=== PATIENT | female | born 1975 | race Caucasian/White ===

== ENCOUNTER 2018-01-10 13:48 | Emergency (ER) | payer OTHER ==
--- NOTE | 2018-01-10 14:48 | ER Document Report ---
ED Extremity Problem, Lower - General Chief Complaint: Foot Pain Stated Complaint: TOE PAIN Time Seen by Provider: 01/10/18 14:48 Mode of Arrival: Ambulatory Information source: Patient Notes: 42-year-old female presented ED for complaint of pain to the left second and third toe for about 3 weeks. She states she has not been to her primary doctor or anyone for this infection because she does not have insurance. Patient is alert and oriented respirations regular and unlabored speaking in full sentences walk with a even steady gait. She does complain of pain with ambulation. TRAVEL OUTSIDE OF THE [place] IN LAST 30 DAYS: No - HPI Location: 2nd Toe, 3rd Toe - Slight redness to the second and third toe with athlete's foot to all the toes and foot Occurred: Other - 3 weeks Onset/Duration: Gradual, Worse Quality of pain: Sharp, Throbbing Severity: Moderate Pain Level: 2 Context: Other - Athlete's foot with some cellulitis due to scratching and itching the foot Recent injury: No Associated symptoms: Painful ambulation Exacerbated by: Hanging down, Movement, Walking Relieved by: Nothing - Related Data Allergies/Adverse Reactions: Sulfa (Sulfonamide Antibiotics) Allergy (Unknown, Verified 01/10/18 13:48) Past Medical History - General Information source: Patient - Social History Smoking Status: Never Smoker Frequency of alcohol use: Occasional Drug Abuse: None Occupation: [employer] Lives with: Family Family History: Reviewed & Not Pertinent Patient has suicidal ideation: No Patient has homicidal ideation: No - Past Medical History Cardiac Medical History: Reports: Hx Hypertension Pulmonary Medical History: Reports: None EENT Medical History: Reports: None Neurological Medical History: Reports: None Endocrine Medical History: Reports: Hx Graves' Disease, Other Renal/ Medical History: Reports: None Malignancy Medical History: Reports: None GI Medical History: Reports: None Musculoskeltal Medical History: Reports Hx Arthritis - RA Skin Medical History: Reports None Psychiatric Medical History: Reports: None Traumatic Medical History: Reports: None Infectious Medical History: Reports: None Past Surgical History: Reports: Hx Adenoidectomy, Hx Cholecystectomy, Hx Hysterectomy, Hx Tonsillectomy - Immunizations Immunizations up to date: Yes Hx Diphtheria, Pertussis, Tetanus Vaccination: Yes - 11/2009 Review of Systems - Review of Systems Skin: Other - Athlete's foot to the left foot with cellulitis to the second and third toe distal toe on both. Patient has been scratching her athlete's foot and states it has been slowly getting more more sore when walking Physical Exam - Vital signs Vitals: Temp Pulse Resp BP Pulse Ox 98.5 F 80 16 129/75 H 95 01/10/18 13:56 01/10/18 13:56 01/10/18 13:56 01/10/18 13:56 01/10/18 13:56 - Extremities Foot: Tender, No evidence of FB, Unable to bear weight, Other - Erythema and mild swelling to the distal part of the second and third toe on the left foot due to cellulitis after repeated scratching of her athlete's foot - Skin Location of irregularity: Extremities - Left second and third toe, Other - Athlete's foot to the left foot and between the toes Character of irregularity: Erythematous Irregularity with: Swelling, Tenderness Course - Re-evaluation Re-evalutation: 01/10/18 20:33 Patient encouraged to keep the foot clean and dry soak the foot and some Epson salt, use Bactroban to the end of the toes and use the antibiotic as prescribed. Patient encouraged to follow-up with a service unit operator oil well. Patient is on RA treatments and needs to inform her clinical research assistant that she has an infection to these toes as she has taken methotrexate and other immunosuppressant drugs for her RA. Patient states she would call her clinical research assistant in the morning. - Vital Signs Vital signs: Temp Pulse Resp BP Pulse Ox 97.9 F 77 16 128/79 H 97 01/10/18 14:56 01/10/18 14:56 01/10/18 14:56 01/10/18 14:56 01/10/18 14:56 Discharge - Discharge Clinical Impression: Athlete's foot on left, Cellulitis to the second and third toe l Condition: Stable Disposition: HOME, SELF-CARE Additional Instructions: You have athlete's foot to your toes and foot on your left foot. This athlete' s foot and have now caused a cellulitis to the second and third toe. Please clean these toes frequently keep them clean and dry and use some ketoconazole [id number] to the toes and foot to treat your athlete's foot Use the Bactroban I have provided to the 2 infected toes 3 times a day. Keep your feet clean and dry. Bactroban Ointment Bactroban is very effective against the germs that cause infection within the skin. It's useful for impetigo and other superficial infections. Deeper infections require antibiotics by mouth or by shot. Apply the medicine three times a day for one week, or longer if your doctor has advised it. Stop the medicine and call your doctor if you develop large blisters, severe itching, increasing pain, swelling, fever, or spreading redness. Doxycycline Doxycycline (Vibramycin, Doryx) is an antibiotic of the tetracycline family. This type of drug is useful for infections of the respiratory tract and genital tract, and is sometimes used for intestinal infections. Unlike most tetracyclines, doxycycline can be taken with food. It is longer acting, and (usually) less prone to side effects than regular tetracycline. Tetracycline antibiotics can stain immature teeth and SHOULD NOT BE TAKEN BY CHILDREN, NURSING MOTHERS, OR WOMEN. Tetracyclines can make you more prone to sunburn. Abdominal cramping, nausea, and diarrhea are occasional side effects. Women may experience vaginal yeast infections. Call the doctor at once if you develop hives, itching, shortness of breath , or lightheadedness. Epsom Salt Soaks Soak the wound area in a container of warm epsom salt water. If you can't get the wound area into a bucket or fall, use a folded towel soaked in the epsom salt solution and apply to the area. Use clean hot tap water (about the temperature of a very warm bath), mixing in about one (1) teaspoon for every pint of water. Two gallon --> 16 teaspoons Epsom Salts One gallon --> 8 teaspoons Epsom Salts Two quarts --> 4 teaspoons Epsom Salts One quart --> 2 teaspoons Epsom Salts Soak the wound for about 20 minutes while gently moving it around in the water. Repeat this four (4) times a day. FOLLOW-UP CARE: If you have been referred to a physician for follow-up care, call the physician s office for an appointment as you were instructed or within the next two days. If you experience worsening or a significant change in your symptoms, notify the physician immediately or return to the Emergency Department at any time for re-evaluation. Prescriptions: Doxycycline Hyclate 100 mg PO BID #14 tablet Mupirocin [Bactroban 2% Ointment 22 gm] 22 applic TP TID #1 tube Forms: Elevated Blood Pressure, Return to Work Referrals: WAYNE BATES DPM [ACTIVE STAFF] - Follow up as needed [facility] [Provider Group] - Follow up as needed
[2018-01-10] MEDS ORDERED: DOXYCYCLINE HYCLATE 100 MG TABLET PO ONE (14:49)
[2018-01-10] MEDS ORDERED: MUPIROCIN 2% OINTMENT 22 GM TP ONE (14:49)
[2018-01-10 14:57] VITALS: BP 128/79
== END 2018-01-10 14:58 | disposition home or self-care (01) ==
LOC: ER 13:48
DX: B35.3 Tinea pedis (principal); L03.032 Cellulitis of left toe; M79.672 Pain in left foot; I11.0 Hypertensive heart disease with heart failure; Z88.2 Allergy status to sulfonamides
CPT/HCPCS: 99283; J3490

== ENCOUNTER 2018-05-19 13:15 | Emergency (ER) | payer OTHER ==
[2018-05-19] MEDS ORDERED: MORPHINE SULFATE 10 MG/ML INJ IV ONE (14:23)
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
[2018-05-19 15:12] LABS: ABSOLUTE EOSINOPHILS # (AUTO) 0.3 10^3/uL (0.0-0.6); ABSOLUTE LYMPHOCYTES (AUTO) 1.8 10^3/uL (0.5-4.7); ABSOLUTE MONOCYTES (AUTO) 0.8 10^3/uL (0.1-1.4); ABSOLUTE NEUT (AUTO) 7.3 10^3/uL (1.7-8.2); BASOPHILS % (AUTO) 0.2 % (0-2); EOSINOPHILS % (AUTO) 2.6 % (0-6); HEMATOCRIT 40.6 % (36.0-47.0); HEMOGLOBIN 14.2 g/dL (12.0-15.5); LYMPHOCYTES % (AUTO) 17.7 % (13-45); MEAN CORPUSCULAR HEMOGLOBIN 30.1 pg (27.0-33.4); MEAN CORPUSCULAR HGB CONC 35.1 g/dL (32.0-36.0); MEAN CORPUSCULAR VOLUME 86 fl (80-97); PLATELET COUNT 274 10^3/uL (150-450); RED BLOOD COUNT 4.73 10^6/uL (3.72-5.28); RED CELL DISTRIBUTION WIDTH 12.9 % (11.5-14.0); SEGMENTED NEUTROPHILS % (AUTO) 71.5 % (42-78); TOTAL CELLS COUNTED % (AUTO) 100 %; WHITE BLOOD COUNT 10.2 10^3/uL (4.0-10.5)
[2018-05-19 15:20] LABS: APPEARANCE,URINE CLEAR; BILIRUBIN,URINE NEGATIVE (NEGATIVE); COLOR,URINE YELLOW; GLUCOSE, URINE NEGATIVE (NEGATIVE); KETONES,URINE NEGATIVE (NEGATIVE); LEUKOCYTE ESTERASE,URINE NEGATIVE (NEGATIVE); NITRITE,URINE NEGATIVE (NEGATIVE); PROTEIN,URINE NEGATIVE (NEGATIVE); URINE SPECIFIC GRAVITY 1.017; UROBILINOGEN,URINE NEGATIVE mg/dL (<2.0)
[2018-05-19 15:31] LABS: INTERNATIONAL RATION (INR) 1.01; PROTHROMBIN TIME 13.9 SEC (11.4-15.4)
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
[2018-05-19 15:56] LABS: ALANINE AMINOTRANSFERASE 40 U/L (9-52); ALBUMIN 4.1 g/dL (3.5-5.0); ALKALINE PHOSPHATASE 89 U/L (38-126); ANION GAP 14 (5-19); ASPARTATE AMINO TRANSFERASE 35 U/L (14-36); BILIRUBIN,DIRECT 0.2 mg/dL (0.0-0.4); BILIRUBIN,TOTAL 0.4 mg/dL (0.2-1.3); BLOOD UREA NITROGEN 11 mg/dL (7-20); CALCIUM 9.6 mg/dL (8.4-10.2); CARBON DIOXIDE 28 mmol/L (22-30); CHLORIDE 100 mmol/L (98-107); GLUCOSE 106 mg/dL (75-110); POTASSIUM 3.9 mmol/L (3.6-5.0); SODIUM 141.6 mmol/L (137-145); TOTAL PROTEIN 7.7 g/dL (6.3-8.2)
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
[2018-05-19] MEDS ORDERED: KETOROLAC TROMETHAMINE INJ/PF 30 MG/1 ML SDV IV ONE (16:34)
[2018-05-19 16:49] VITALS: BP 138/86
--- NOTE | 2018-05-19 19:06 | EKG REPORT ---
SEVERITY:- OTHERWISE NORMAL ECG - SINUS RHYTHM BORDERLINE LEFT AXIS DEVIATION : Confirmed by: Genny Weaver MD 19-May-2018 19:06:06
== END 2018-05-19 17:03 | disposition home or self-care (01) ==
LOC: ER 13:15
DX: R07.89 Other chest pain (principal); R10.9 Unspecified abdominal pain; M79.604 Pain in right leg; M79.605 Pain in left leg; V87.7XXA Person injured in collision between other specified motor vehicles (traffic), initial encounter; I10 Essential (primary) hypertension
CPT/HCPCS: 93005; 99284; 96374; 96375; 36415; 85025; 85610; 85730; 80053; 81001; 73564; 73590 ×2; 71260; 74177; 93010; J1885; J2270

== ENCOUNTER 2018-08-22 12:04 | Inpatient (IN) | payer OTHER ==
[2018-08-22] MEDS ORDERED: AMIODARONE HCL INJ 150 MG/3 ML VIAL IV ONE (12:11)
--- NOTE | 2018-08-22 12:26 | ER Document Report ---
ED Cardiac - General Stated Complaint: HEART PALPITATIONS Time Seen by Provider: 08/22/18 12:13 Primary Care Provider: SINGH MEJIA PA-C [Primary Care Provider] - Follow up as needed Mode of Arrival: Medic Information source: Patient, Emergency Med Personnel, [facility] Records Notes: This 43-year-old female patient brought the emergency room by EMS with runs of V. tach. She reports this morning that she did not feel well and while at work her chest began to feel heavy, felt short of breath, and was feeling palpitations. She reports she has felt palpitations off and on over the past month but they were short-lived without any shortness of breath or chest discomfort. She reports her symptoms have been going on all day today. EMS did give a loading dose of amiodarone and by history it slowed down the runs of V. tach. TRAVEL OUTSIDE OF THE [place] IN LAST 30 DAYS: No - Related Data Allergies/Adverse Reactions: Sulfa (Sulfonamide Antibiotics) Allergy (Unknown, Verified 05/19/18 13:18) Past Medical History - General Information source: Patient, Emergency Med Personnel, [facility] Records - Social History Smoking Status: Never Smoker Cigarette use (# per day): No Chew tobacco use (# tins/day): No Smoking Education Provided: No Frequency of alcohol use: None Drug Abuse: None Lives with: Family Family History: Reviewed & Not Pertinent - Past Medical History Cardiac Medical History: Reports: Hx Hypertension Pulmonary Medical History: Reports: None EENT Medical History: Reports: None Neurological Medical History: Reports: None Endocrine Medical History: Reports: Hx Graves' Disease - Patient is on Synthroid at this time GI Medical History: Reports: None Musculoskeletal Medical History: Reports Hx Arthritis - RA taking methotrexate Psychiatric Medical History: Reports: None Past Surgical History: Reports: Hx Adenoidectomy, Hx Cholecystectomy, Hx Hysterectomy, Hx Tonsillectomy - Immunizations Immunizations up to date: Yes Hx Diphtheria, Pertussis, Tetanus Vaccination: Yes - 11/2009 Review of Systems - Review of Systems Constitutional: No symptoms reported EENT: No symptoms reported Cardiovascular: No symptoms reported Respiratory: No symptoms reported Gastrointestinal: No symptoms reported Genitourinary: No symptoms reported Musculoskeletal: Joint pain - From her rheumatoid arthritis Hematologic/Lymphatic: No symptoms reported Neurological/Psychological: No symptoms reported Physical Exam - Vital signs Vitals: Temp 97.9 F 08/22/18 12:13 Interpretation: Normal - General General appearance: Alert, Anxious In distress: Mild - HEENT Head: Normocephalic, Atraumatic Eyes: Normal Pupils: PERRL Pharynx: Normal Neck: Normal - Respiratory Respiratory status: No respiratory distress Breath sounds: Normal - Cardiovascular Rhythm: Extrasystoles, Tachycardia Heart sounds: Normal auscultation Murmur: No - Abdominal Inspection: Obese Bowel sounds: Normal Tenderness: Nontender - Back Back: Normal - Extremities General upper extremity: Normal inspection General lower extremity: Normal inspection - Neurological Neuro grossly intact: Yes - Psychological Associated symptoms: Anxious - Skin Skin Temperature: Warm Skin Moisture: Dry Skin Color: Normal Course - Re-evaluation Re-evalutation: 08/22/18 13:25 The patient continues to have frequent runs of V. tach lasting between 4 and 6 beats despite the amiodarone drip. We will administer lidocaine 100 mg IV and see if that slows down the runs of V. tach. - Vital Signs Vital signs: Temp Pulse Resp BP Pulse Ox 97.9 F 08/22/18 12:13 - Laboratory Result Diagrams: 08/22/18 12:20 08/22/18 12:20 Laboratory results interpreted by me: 08/22/18 08/22/18 08/22/18 12:20 12:20 12:20 RDW 14.8 H Glucose 173 H AST 73 H ALT 86 H Creatine Kinase 163 H TSH < 0.01 L Free T3 pg/mL 6.67 H Urine Blood 08/22/18 13:07 RDW Glucose AST ALT Creatine Kinase TSH Free T3 pg/mL Urine Blood SMALL H - Diagnostic Test Radiology reviewed: Reports reviewed - Chest x-ray is read as cardiac enlargement with vascular congestion - EKG Interpretation by Me EKG shows normal: Sinus rhythm, Bantry, Intervals, QRS Complexes, ST-T Waves Rate: Normal - 91 Rhythm: NSR, PVC's - Frequent PVCs When compared to previous EKG there are: Changes noted - Consults Dr. Weaver Time consulted: 13:45 Consulted provider: will see as inpatient - After much discussion, Dr. Weaver ultimately decided he wanted the patient placed on an esmolol drip, stop the amiodarone, and admit to the intensive care unit. Dr. Burgos Time consulted: 14:00 Consulted provider: will come to ER Critical Care Note - Critical Care Note Total time excluding time spent on procedures (mins): 40 Discharge - Discharge Clinical Impression: Ventricular tachycardia (paroxysmal) Condition: Stable Disposition: ADMITTED INPATIENT Admitting Provider: Hospitalist Unit Admitted: ICU Referrals: SINGH MEJIA PA-C [Primary Care Provider] - Follow up as needed
[2018-08-22 12:42] LABS: ABSOLUTE EOSINOPHILS # (AUTO) 0.2 10^3/uL (0.0-0.6); ABSOLUTE LYMPHOCYTES (AUTO) 1.5 10^3/uL (0.5-4.7); ABSOLUTE MONOCYTES (AUTO) 0.4 10^3/uL (0.1-1.4); ABSOLUTE NEUT (AUTO) 3.8 10^3/uL (1.7-8.2); BASOPHILS % (AUTO) 0.4 % (0-2); EOSINOPHILS % (AUTO) 3.8 % (0-6); HEMATOCRIT 40.7 % (36.0-47.0); HEMOGLOBIN 13.9 g/dL (12.0-15.5); LYMPHOCYTES % (AUTO) 25.7 % (13-45); MEAN CORPUSCULAR HEMOGLOBIN 30.3 pg (27.0-33.4); MEAN CORPUSCULAR HGB CONC 34.2 g/dL (32.0-36.0); MEAN CORPUSCULAR VOLUME 89 fl (80-97); MONOCYTES % (AUTO) 7.2 % (3-13); PLATELET COUNT 175 10^3/uL (150-450); RED BLOOD COUNT 4.59 10^6/uL (3.72-5.28); RED CELL DISTRIBUTION WIDTH 14.8 % (11.5-14.0); SEGMENTED NEUTROPHILS % (AUTO) 62.9 % (42-78); TOTAL CELLS COUNTED % (AUTO) 100 %
[2018-08-22 12:57] LABS: ALANINE AMINOTRANSFERASE 86 U/L (9-52); ALBUMIN 3.6 g/dL (3.5-5.0); ALKALINE PHOSPHATASE 73 U/L (38-126); ANION GAP 8 (5-19); ASPARTATE AMINO TRANSFERASE 73 U/L (14-36); BILIRUBIN,DIRECT 0.2 mg/dL (0.0-0.4); BILIRUBIN,TOTAL 0.4 mg/dL (0.2-1.3); BLOOD UREA NITROGEN 17 mg/dL (7-20); CARBON DIOXIDE 26 mmol/L (22-30); CHLORIDE 107 mmol/L (98-107); CREATINE KINASE 163 U/L (30-135); GLUCOSE 173 mg/dL (75-110); POTASSIUM 3.6 mmol/L (3.6-5.0); SODIUM 140.5 mmol/L (137-145); TOTAL PROTEIN 6.3 g/dL (6.3-8.2)
[2018-08-22 13:08] LABS: CREATINE KINASE MB 2.97 ng/mL (<4.55)
[2018-08-22 13:09] LABS: TROPONIN I < 0.012 ng/mL
[2018-08-22 13:14] LABS: FREE T4 (FREE THYROXINE) 1.86 ng/dL (0.78-2.19)
[2018-08-22 13:15] LABS: FREE T3 6.67 pg/mL (2.77-5.27)
[2018-08-22 13:26] LABS: APPEARANCE,URINE CLEAR; BILIRUBIN,URINE NEGATIVE (NEGATIVE); COLOR,URINE YELLOW; GLUCOSE, URINE NEGATIVE (NEGATIVE); KETONES,URINE NEGATIVE (NEGATIVE); LEUKOCYTE ESTERASE,URINE NEGATIVE (NEGATIVE); NITRITE,URINE NEGATIVE (NEGATIVE); PROTEIN,URINE NEGATIVE (NEGATIVE); URINE SPECIFIC GRAVITY 1.015; UROBILINOGEN,URINE NEGATIVE mg/dL (<2.0)
[2018-08-22] MEDS ORDERED: LIDOCAINE 2% INJ-PF (100 MG/5 ML) SYRINGE IV ONE (13:26)
[2018-08-22] MEDS ORDERED: DEXTROSE 5%-WATER 500 ML with AMIODARONE HCL 900 MG IV PRN ×2 (13:28)
[2018-08-22 13:29] LABS: THYROID STIMULATING HORMONE < 0.01 uIU/mL (0.47-4.68)
[2018-08-22] MEDS ORDERED: LIDOCAINE HCL/D5W/PF 2,000 MG/250 ML RTUINJ IV PRN ×2 (13:39→13:45)
[2018-08-22] MEDS ORDERED: METOPROLOL TARTRATE PF/INJ 5 MG/5 ML SDV IV ONE (13:49)
[2018-08-22] MEDS ORDERED: NORMAL SALINE 1000 ML 1,000 ML IV ONE (13:49)
--- NOTE | 2018-08-22 13:57 | RADIOLOGY REPORT (SQ) ---
EXAM DESCRIPTION: CHEST SINGLE VIEW COMPLETED DATE/TIME: 08/22/2018 1:00 pm REASON FOR STUDY: V-tach COMPARISON: 09/19/2012 NUMBER OF VIEWS: One view. TECHNIQUE: Single frontal radiographic view of the chest acquired. LIMITATIONS: None. FINDINGS: LUNGS AND PLEURA: No opacities, masses or pneumothorax. No pleural effusion. MEDIASTINUM AND HILAR STRUCTURES: No masses or contour abnormality. HEART AND VASCULATURE: Cardiac enlargement. Vascular congestion. BONES: No acute findings. HARDWARE: None in the chest. OTHER: No other significant finding. IMPRESSION: CARDIAC ENLARGEMENT. VASCULAR CONGESTION. TECHNICAL DOCUMENTATION: JOB ID: [id number] [employer]- All Rights Reserved Reading location - IP/workstation name: [email or web address]
[2018-08-22] MEDS ORDERED: NORMAL SALINE 1000 ML 500 ML IV ONE (14:05)
[2018-08-22] MEDS: ESMOLOL HCL/SOD CL 2,500 MG/250 ML RTUINJ IV PRN ×3 (14:25→21:13)
[2018-08-22 14:36] LABS: NT PRO BNP 149 pg/mL (<125)
[2018-08-22 15:39] LABS: C-REACTIVE PROTEIN < 5.0 mg/L (<10.0)
[2018-08-22] MEDS ORDERED: ACETAMINOPHEN 325 MG TABLET PO PRN (15:44)
[2018-08-22 15:59] LABS: URINE AMPHETAMINES SCREEN NEGATIVE; URINE BARBITURATES SCREEN NEGATIVE; URINE BENZODIAZEPINES SCREEN NEGATIVE; URINE COCAINE SCREEN NEGATIVE; URINE MARIJUANA (THC) SCREEN NEGATIVE; URINE METHADONE SCREEN NEGATIVE; URINE PHENCYCLIDINE SCREEN NEGATIVE
[2018-08-22] MEDS: DEXTROSE 5%-NORMAL SALINE 1,000 ML IV PRN (17:51)
--- NOTE | 2018-08-22 18:55 | PDOC H&P ---
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 She is stating that she felt transient palpitations twice in the last month but today she started having palpitation in the morning at 7:15 AM which was constant associated with mild lightheadedness and nausea which persisted until she got to ED. In ED she was found to be in V. tach was a started on an amiodarone drip which was not successful a trial of lidocaine was given which was successful but patient started having V. tach again. Dr. Weaver was called and recommendation was to start patient on esmolol and admit to ICU. Patient denies any IV drug use, surreptitious use of levothyroxine, recent stressors or any herbal meds. Eyes any chest pain, shortness of breath, nausea, vomiting, diarrhea, constipation, any urinary symptoms. Past Medical History Cardiac Medical History: Reports: Hypertension Pulmonary Medical History: Reports: None EENT Medical History: Reports: None Neurological Medical History: Reports: None GI Medical History: Reports: None Musculoskeltal Medical History: Reports: Arthritis - RA taking methotrexate Psychiatric Medical History: Reports: None Past Surgical History Past Surgical History: Reports: Adenoidectomy, Cholecystectomy, Hysterectomy, Tonsillectomy Social History Lives with: Family Smoking Status: Never Smoker Frequency of Alcohol Use: Occasional Drugs: None Hx Prescription Drug Abuse: No - Advance Directive Resuscitation Status: Full Code Family History Family History: Reviewed & Not Pertinent Parental Family History Reviewed: Yes Children Family History Reviewed: Yes Sibling(s) Family History Reviewed.: Yes Medication/Allergy Home Medications: Lisinopril/Hydrochlorothiazide [Zestoretic 20-25 Mg Tablet] 1 each PO DAILY 09/19/12 Folic Acid [Folvite 1 mg Tablet] 2 mg PO DAILY 08/22/18 Levothyroxine Sodium [Synthroid 50 Mcg Tablet] 0.05 mg PO QHS 08/22/18 Methotrexate Sodium [Rheumatrex 2.5 mg Tablet] 2.5 mg PO MO@22 08/22/18 Potassium Chloride 10 meq PO DAILY 08/22/18 Allergies/Adverse Reactions: Sulfa (Sulfonamide Antibiotics) Allergy (Unknown, Verified 08/22/18 15:30) Review of Systems Review of Systems: Per HPI. Physical Exam Vital Signs: Temp Pulse Resp BP Pulse Ox 98.6 F 91 20 126/71 H 96 08/22/18 17:53 08/22/18 17:53 08/22/18 17:53 08/22/18 17:53 08/22/18 18:00 Intake & Output 08/21/18 08/22/18 08/23/18 06:59 06:59 06:59 Intake Total 1250 Output Total 0 Balance 1250 Weight 134.7 kg General appearance: PRESENT: obese Head exam: PRESENT: atraumatic, normocephalic Eye exam: PRESENT: conjunctiva pink, EOMI, PERRLA. ABSENT: scleral icterus Ear exam: PRESENT: normal external ear exam Neck exam: ABSENT: carotid bruit, JVD, lymphadenopathy, thyromegaly Respiratory exam: PRESENT: clear to auscultation rick. ABSENT: rales, rhonchi, wheezes Cardiovascular exam: PRESENT: RRR. ABSENT: diastolic murmur, rubs, systolic murmur Pulses: PRESENT: normal dorsalis pedis pul GI/Abdominal exam: PRESENT: normal bowel sounds, soft. ABSENT: distended, guarding, mass, organolmegaly, rebound, tenderness Extremities exam: PRESENT: full ROM. ABSENT: calf tenderness, clubbing, pedal edema Neurological exam: PRESENT: alert, awake, oriented to person, oriented to place, oriented to time, oriented to situation, CN II-XII grossly intact. ABSENT: motor sensory deficit Skin exam: PRESENT: dry, intact, warm. ABSENT: cyanosis, rash Results Laboratory Results: 08/22/18 12:20 08/22/18 12:20 08/22/18 08/22/18 08/22/18 12:20 12:20 12:20 WBC 6.0 RBC 4.59 Hgb 13.9 Hct 40.7 MCV 89 MCH 30.3 MCHC 34.2 RDW 14.8 H Plt Count 175 Seg Neutrophils % 62.9 Lymphocytes % 25.7 Monocytes % 7.2 Eosinophils % 3.8 Basophils % 0.4 Absolute Neutrophils 3.8 Absolute Lymphocytes 1.5 Absolute Monocytes 0.4 Absolute Eosinophils 0.2 Absolute Basophils 0.0 Sodium 140.5 Potassium 3.6 Chloride 107 Carbon Dioxide 26 Anion Gap 8 BUN 17 Creatinine 0.66 Est GFR ( Amer) > 60 Est GFR (Non-Af Amer) > 60 Glucose 173 H Lactic Acid Calcium 9.0 Magnesium 1.6 Total Bilirubin 0.4 AST 73 H ALT 86 H Alkaline Phosphatase 73 C-Reactive Protein Total Protein 6.3 Albumin 3.6 TSH < 0.01 L Free T4 1.86 Free T3 pg/mL 6.67 H Urine Color Urine Appearance Urine pH Ur Specific [place] Urine Protein Urine Glucose (UA) Urine Ketones Urine Blood Urine Nitrite Ur Leukocyte Esterase Urine WBC (Auto) Urine RBC (Auto) 08/22/18 08/22/18 08/22/18 12:20 13:07 16:24 WBC RBC Hgb Hct MCV MCH MCHC RDW Plt Count Seg Neutrophils % Lymphocytes % Monocytes % Eosinophils % Basophils % Absolute Neutrophils Absolute Lymphocytes Absolute Monocytes Absolute Eosinophils Absolute Basophils Sodium Potassium Chloride Carbon Dioxide Anion Gap BUN Creatinine Est GFR ( Amer) Est GFR (Non-Af Amer) Glucose Lactic Acid 0.8 Calcium Magnesium Total Bilirubin AST ALT Alkaline Phosphatase C-Reactive Protein < 5.0 Total Protein Albumin TSH Free T4 Free T3 pg/mL Urine Color YELLOW Urine Appearance CLEAR Urine pH 6.0 Ur Specific [place] 1.015 Urine Protein NEGATIVE Urine Glucose (UA) NEGATIVE Urine Ketones NEGATIVE Urine Blood SMALL H Urine Nitrite NEGATIVE Ur Leukocyte Esterase NEGATIVE Urine WBC (Auto) 1 Urine RBC (Auto) 1 08/22/18 08/22/18 12:20 12:20 Creatine Kinase 163 H CK-MB (CK-2) 2.97 Troponin I < 0.012 NT-Pro-B Natriuret Pep 149 H Impressions: Chest X-Ray 08/22/18 12:19 IMPRESSION: CARDIAC ENLARGEMENT. VASCULAR CONGESTION. Assessment & Plan - Diagnosis (1) Ventricular tachycardia (paroxysmal) Is this a current diagnosis for this admission?: Yes Plan: Continue esmolol drip. Pending 2D echo. Cardiology on board. Continue monitoring in ICU. (2) H/O Crissy thyroiditis Is this a current diagnosis for this admission?: Yes Plan: Levothyroxine. TSH undetectable. (3) Obesity Is this a current diagnosis for this admission?: Yes Plan: Diet and lifestyle modification. (4) Rheumatoid arthritis Is this a current diagnosis for this admission?: No Plan: In remission. Restart home meds. Outpatient rheumatology follow-up.
[2018-08-22] MEDS: HEPARIN SOD (PORCINE) 5,000 UNIT/ML 1 ML SYRINGE SUBCUT SCH (21:12)
[2018-08-22] MEDS: FAMOTIDINE 20 MG TABLET PO SCH (21:12)
--- NOTE | 2018-08-22 21:33 | EKG REPORT ---
SEVERITY:- ABNORMAL ECG - SINUS TACHYCARDIA MULTIPLE VENTRICULAR PREMATURE COMPLEXES : Confirmed by: Brielle Bustamante 22-Aug-2018 21:32:44
[2018-08-23] MEDS: ESMOLOL HCL/SOD CL 2,500 MG/250 ML RTUINJ IV PRN ×2 (02:28→08:40)
[2018-08-23 05:05] LABS: ABSOLUTE EOSINOPHILS # (AUTO) 0.2 10^3/uL (0.0-0.6); ABSOLUTE LYMPHOCYTES (AUTO) 1.7 10^3/uL (0.5-4.7); ABSOLUTE MONOCYTES (AUTO) 0.4 10^3/uL (0.1-1.4); ABSOLUTE NEUT (AUTO) 2.2 10^3/uL (1.7-8.2); BASOPHILS % (AUTO) 0.7 % (0-2); EOSINOPHILS % (AUTO) 3.6 % (0-6); HEMATOCRIT 37.4 % (36.0-47.0); HEMOGLOBIN 12.8 g/dL (12.0-15.5); LYMPHOCYTES % (AUTO) 36.9 % (13-45); MEAN CORPUSCULAR HEMOGLOBIN 30.9 pg (27.0-33.4); MEAN CORPUSCULAR HGB CONC 34.3 g/dL (32.0-36.0); MEAN CORPUSCULAR VOLUME 90 fl (80-97); MONOCYTES % (AUTO) 9.5 % (3-13); PLATELET COUNT 153 10^3/uL (150-450); RED BLOOD COUNT 4.16 10^6/uL (3.72-5.28); RED CELL DISTRIBUTION WIDTH 15.2 % (11.5-14.0); SEGMENTED NEUTROPHILS % (AUTO) 49.3 % (42-78); TOTAL CELLS COUNTED % (AUTO) 100 %; WHITE BLOOD COUNT 4.5 10^3/uL (4.0-10.5)
[2018-08-23 05:46] LABS: ALANINE AMINOTRANSFERASE 91 U/L (9-52); ALBUMIN 3.2 g/dL (3.5-5.0); ALKALINE PHOSPHATASE 57 U/L (38-126); ANION GAP 5 (5-19); ASPARTATE AMINO TRANSFERASE 89 U/L (14-36); BILIRUBIN,DIRECT 0.2 mg/dL (0.0-0.4); BILIRUBIN,TOTAL 0.6 mg/dL (0.2-1.3); BLOOD UREA NITROGEN 18 mg/dL (7-20); CALCIUM 8.1 mg/dL (8.4-10.2); CARBON DIOXIDE 26 mmol/L (22-30); CHLORIDE 109 mmol/L (98-107); GLUCOSE 127 mg/dL (75-110); POTASSIUM 3.7 mmol/L (3.6-5.0); SODIUM 140.2 mmol/L (137-145); TOTAL PROTEIN 5.7 g/dL (6.3-8.2)
[2018-08-23] MEDS: DEXTROSE 5%-NORMAL SALINE 1,000 ML IV PRN ×2 (06:03→21:09)
[2018-08-23] MEDS: HEPARIN SOD (PORCINE) 5,000 UNIT/ML 1 ML SYRINGE SUBCUT SCH ×3 (06:04→21:04)
[2018-08-23] MEDS: FOLIC ACID 1 MG TABLET PO SCH (09:51)
[2018-08-23] MEDS: LISINOPRIL 10 MG TABLET PO SCH (09:52)
[2018-08-23] MEDS: FAMOTIDINE 20 MG TABLET PO SCH ×2 (09:52→21:05)
[2018-08-23] MEDS: HYDROCHLOROTHIAZIDE 25 MG TABLET PO SCH (09:52)
[2018-08-23] MEDS ORDERED: (PENDING PHARMACY ID) (Lisinopril/Hydrochlorothiazide [Zestoretic 20-25 Mg Tablet] 1 EACH) PO SCH (10:00)
[2018-08-23] MEDS: METOPROLOL TARTRATE 25 MG TABLET PO SCH ×2 (10:54→21:04)
--- NOTE | 2018-08-23 18:05 | PDOC PROGRESS REPORT ---
Subjective Progress Note for:: 08/23/18 Subjective:: No acute events overnight. Off of esmolol drip. Not had any recurrence of V. tach. Denies any fever, shortness of breath, chills, nausea, vomiting, chest pain, diarrhea, constipation or any urinary symptoms. Reason For Visit: PALPITATIONS, V.TACH. Physical Exam Vital Signs: Temp Pulse Resp BP Pulse Ox 98.0 F 71 18 107/68 98 08/23/18 16:00 08/23/18 14:00 08/23/18 14:01 08/23/18 14:01 08/23/18 14:01 Intake & Output 08/22/18 08/23/18 08/24/18 06:59 06:59 06:59 Intake Total 3142 1164 Output Total 1300 2850 Balance 1842 -1686 Weight 134.7 kg General appearance: PRESENT: obese Head exam: PRESENT: atraumatic, normocephalic Respiratory exam: PRESENT: clear to auscultation rick. ABSENT: rales, rhonchi, wheezes Cardiovascular exam: PRESENT: RRR. ABSENT: diastolic murmur, rubs, systolic murmur GI/Abdominal exam: PRESENT: normal bowel sounds, soft. ABSENT: distended, guarding, mass, organolmegaly, rebound, tenderness Extremities exam: PRESENT: full ROM. ABSENT: calf tenderness, clubbing, pedal edema Neurological exam: PRESENT: alert, awake, oriented to person, oriented to place, oriented to time, oriented to situation, CN II-XII grossly intact. ABSENT: motor sensory deficit Results Laboratory Results: 08/23/18 04:31 08/23/18 04:31 08/23/18 08/23/18 04:31 04:31 WBC 4.5 RBC 4.16 Hgb 12.8 Hct 37.4 MCV 90 MCH 30.9 MCHC 34.3 RDW 15.2 H Plt Count 153 Seg Neutrophils % 49.3 Lymphocytes % 36.9 Monocytes % 9.5 Eosinophils % 3.6 Basophils % 0.7 Absolute Neutrophils 2.2 Absolute Lymphocytes 1.7 Absolute Monocytes 0.4 Absolute Eosinophils 0.2 Absolute Basophils 0.0 Sodium 140.2 Potassium 3.7 Chloride 109 H Carbon Dioxide 26 Anion Gap 5 BUN 18 Creatinine 0.49 L Est GFR ( Amer) > 60 Est GFR (Non-Af Amer) > 60 Glucose 127 H Calcium 8.1 L Magnesium 1.6 Total Bilirubin 0.6 AST 89 H ALT 91 H Alkaline Phosphatase 57 Total Protein 5.7 L Albumin 3.2 L 08/22/18 08/22/18 08/23/18 12:20 12:20 04:31 Creatine Kinase 163 H CK-MB (CK-2) 2.97 Troponin I < 0.012 NT-Pro-B Natriuret Pep 149 H 119 Impressions: Chest X-Ray 08/22/18 12:19 IMPRESSION: CARDIAC ENLARGEMENT. VASCULAR CONGESTION. Assessment & Plan - Diagnosis (1) Ventricular tachycardia (paroxysmal) Is this a current diagnosis for this admission?: Yes Plan: Off of esmolol drip. Continue beta-blockers. Transfer to [facility]. Cardiology following. (2) H/O Crissy thyroiditis Is this a current diagnosis for this admission?: Yes Plan: Levothyroxine. TSH undetectable. (3) Obesity Is this a current diagnosis for this admission?: Yes Plan: Diet and lifestyle modification. (4) Rheumatoid arthritis Is this a current diagnosis for this admission?: No Plan: In remission. Restart home meds. Outpatient rheumatology follow-up. (5) Elevated LFTs Is this a current diagnosis for this admission?: Yes Plan: Likely due to methotrexate. Patient is aware of elevated liver functions in the past. Hepatitis panel pending. LFTs tomorrow. Outpatient PCP and rheumatology follow-up.
--- NOTE | 2018-08-23 22:34 | XCELERA REPORT ---
[address] [address] Transthoracic Echocardiogram Report Name: DARRIAN PEREZ Age: 43 yrs Gender: Female : 1975 Patient Status: Inpatient Patient Location: ICU^[facility]^A Study Date: 08/23/2018 09:52 AM Procedure: A two-dimensional transthoracic echocardiogram with color flow and Doppler was performed. Study Quality: Poor. The study was technically difficult with many images being suboptimal in quality. Poor endocardial visualistion and poor doppler interogation. Reason For Study: V TAch History: V TAch. Ordering Physician: DOTTIE FARRAR Performed By: Tatiana Elena Interpretation Summary Poor endocardial visualistion and poor doppler interogation. The left ventricle is normal in size. There is normal left ventricular wall thickness. LV EF is > than 65% The left ventricular ejection fraction is within normal limits. Doppler measurements suggest normal left ventricular diastolic function Probably no regional wall motion abnormality. Right atrium not well visualized secondary to technical limitations The left atrium is mildly dilated. There is no evidence of mitral valve prolapse. There is no vegetation seen on the mitral valve. There is no mitral valve stenosis. There is a trace amount of mitral regurgitation There is no aortic valvular vegetation. There is no aortic valve stenosis There is no LVOT obstruction. No aortic regurgitation is present. There is no tricuspid stenosis. There is a trace amount of tricuspid regurgitation There is mild pulmonary hypertension by echo RVSP is 34 mm of Hg , with RA mean of 10. There is no pulmonic valvular stenosis. There is no pulmonic valvular regurgitation. The inferior vena cava was not well visualized There is no pericardial effusion. MMode/2D Measurements & Calculations RVDd: 4.1 cm LVIDd: 5.7 cm FS: 42.5 % Ao root diam: 2.5 cm IVSd: 1.1 cm LVIDs: 3.3 cm EDV(Teich): 159.5 ml Ao root area: 4.8 cm2 LVPWd: 1.1 cm ESV(Teich): 43.2 ml EF(Teich): 72.9 % Doppler Measurements & Calculations MV E max devante: MV dec slope: Ao V2 max: LV V1 max P.1 cm/sec 164.8 cm/sec 5.9 mmHg MV A max devante: 611.4 cm/sec2 Ao max PG: LV V1 max: 81.0 cm/sec MV dec time: 0.18 sec10.9 mmHg 121.5 cm/sec MV E/A: 1.4 LV dP/dt: 851.5 mmHg/s PA V2 max: TR max devante: 91.3 cm/sec 246.4 cm/sec PA max P.3 mmHg TR max P.3 mmHg Left Ventricle The left ventricle is normal in size. There is normal left ventricular wall thickness. LV EF is > than 65%. The left ventricular ejection fraction is within normal limits. Doppler measurements suggest normal left ventricular diastolic function. Probably no regional wall motion abnormality. Right Ventricle The right ventricle is not well visualized secondary to technical limitations. Atria Right atrium not well visualized secondary to technical limitations. The left atrium is mildly dilated. Mitral Valve There is no evidence of mitral valve prolapse. There is no vegetation seen on the mitral valve. There is no mitral valve stenosis. There is a trace amount of mitral regurgitation. Aortic Valve There is no aortic valvular vegetation. There is no aortic valve stenosis. There is no LVOT obstruction. No aortic regurgitation is present. Tricuspid Valve There is no tricuspid stenosis. There is a trace amount of tricuspid regurgitation. There is mild pulmonary hypertension by echo. RVSP is 34 mm of Hg , with RA mean of 10. Pulmonic Valve There is no pulmonic valvular stenosis. There is no pulmonic valvular regurgitation. Great Vessels The aortic root is normal size. The inferior vena cava was not well visualized. Effusions There is no pericardial effusion. : DOTTIE FARARR > Genny Weaver
--- NOTE | 2018-08-23 23:31 | Progress Note ---
Provider Note Provider Note: CARDIOLOGY PROGRESS NOTE by Dr. Genny Schultz on 08/23/2018. SUBJECTIVE: There is no further runs of PVCs or ventricular salvos. The patient denies any chest pain or discomfort. There is no shortness of breath. There is no PND orthopnea. There is no leg edema. The patient has no acute inflammatory joint signs or symptoms. Selected Entries 08/23/18 12:00 Temperature 98.4 F Temperature Oral Source Pulse Rate 64 Respiratory 22 H Rate Blood Pressure 102/59 L [Right Upper Arm] Blood Pressure 73 Mean [Right Upper Arm] O2 Sat by Pulse 97 Oximetry Oxygen Delivery Room Air Method ( includes room air) HEAD: Is atraumatic normocephalic. EYES: Pupils equal round regular react to light accommodation. External ocular movements are normal. There is no conjunctival pallor. There is no scleral icterus. EARS: Tympanic memories are intact. External auditory canals are clear NOSE: Nasal mucous membranes are without any inflammation. There is no nasal polyps. MOUTH: Mucous members of mouth are moist tongue is moist. There is no ulcers. There is no bleeding from the gums. THROAT: There is no redness of the oropharynx. There is no exudates. SKIN: There is no petechia or ecchymosis.. There is no skin lesions or skin rashes. NECK: Is supple. There is no JVD. Carotids are equal there is no bruits. There is no lymphadenopathy. There is no goiter. There is no accessory muscle respiration use. Trachea central. LUNGS: Is clear to auscultation percussion, without any rhonchi rales or wheezing. There is no chest wall tenderness on palpation. HEART: S1-S2 is heard. There is no S3 gallop. There is no S4 gallop. There is systolic murmur left sternal border and the apex. There is no rub. ABDOMEN: Is obese. Nontender. There is no masses. There is no rebound guarding or rigidity. Bowel sounds are well heard. There is no hepatosplenomegaly. EXTREMITIES: Femorals are very deep. Femorals are diminished. Leg pulses are well felt. There is no pedal edema. There is no DVT or cellulitis. There is no calf tenderness. There is no cyanosis or clubbing. BUTCHER CHICKEN AND FISH: The patient is conscious awake alert oriented x3 with no focal deficits. PSYCHIATRIC: The patient judgment and insight are intact. Her affect is normal. 08/22/18 08/22/18 08/23/18 12:20 12:20 04:31 WBC 4.5 RBC 4.16 Hgb 12.8 Hct 37.4 MCV 90 MCH 30.9 MCHC 34.3 RDW 15.2 H Plt Count 153 Seg Neutrophils % 49.3 Lymphocytes % 36.9 Monocytes % 9.5 Eosinophils % 3.6 Basophils % 0.7 Absolute Neutrophils 2.2 Absolute Lymphocytes 1.7 Absolute Monocytes 0.4 Absolute Eosinophils 0.2 Absolute Basophils 0.0 ESR 6 Sodium Potassium Chloride Carbon Dioxide Anion Gap BUN Creatinine Est GFR (Non-Af Amer) Glucose Calcium Magnesium Total Bilirubin Direct Bilirubin Neonat Total Bilirubin Neonat Direct Bilirubin Neonat Indirect Bili AST ALT Alkaline Phosphatase C-Reactive Protein < 5.0 08/23/18 04:31 WBC RBC Hgb Hct MCV MCH MCHC RDW Plt Count Seg Neutrophils % Lymphocytes % Monocytes % Eosinophils % Basophils % Absolute Neutrophils Absolute Lymphocytes Absolute Monocytes Absolute Eosinophils Absolute Basophils ESR Sodium 140.2 Potassium 3.7 Chloride 109 H Carbon Dioxide 26 Anion Gap 5 BUN 18 Creatinine 0.49 L Est GFR (Non-Af Amer) > 60 Glucose 127 H Calcium 8.1 L Magnesium 1.6 Total Bilirubin 0.6 Direct Bilirubin 0.2 Neonat Total Bilirubin Not Reportable Neonat Direct Bilirubin Not Reportable Neonat Indirect Bili Not Reportable AST 89 H ALT 91 H Alkaline Phosphatase 57 C-Reactive Protein The patient's echocardiogram is not a very good study. But there is no definite wall motion abnormality. LV ejection fraction is normal. Diastolic function is normal. There is no aortic stenosis or aortic regurgitation. There is trace TR, and trace MR. No significant pulmonary hypertension. Right ventricle systolic pressure is 34 mmHg. There is no pericardial effusion. Impression/RECOMMENDATION: 1. Ventricular tachycardia nonsustained: Frequent PVCs and ventricular salvos. Most likely due to irritable heart due to hyper thyroid state. This is resolved with the beta-blockers. Note that the patient's LV ejection fraction is normal. And she has no syncope. Hence the patient's risk of sudden is very low. But will have the patient's here a help desk supervisor as an outpatient. The patient's esmolol drip has been discontinued, the patient had been started on a beta-elyse. We will increase the dose of beta-elyse as dictated by the patient's heart rate and blood pressure. 2. Iatrogenic hyper thyroidism: The patient's Synthroid has been held. We will recheck the patient's free T3 free T4 and TSH tomorrow a.m. 3. History of hypothyroidism. 4. Hypertension: Well controlled 5. History of rheumatoid arthritis: Note the sed rate and the CRP are within normal limits. Hence there is no acute exacerbation of rheumatoid arthritis. 6. Abnormal liver function tests: The patient states that this is due to her anti-rheumatoid arthritis medication. 7. Morbid obesity: Patient denies symptoms of sleep apnea. But would strongly recommend that the patient have a outpatient sleep study done. Medications reviewed. Management plan discussed with the attending physician on the case. Discussed with the patient. 40 minutes spent on this patient with more than 50% of time spent in direct patient care note the patient's echo findings have been discussed with the patient. The patient is a full code. Her mother is a surrogate healthcare decision maker. Will follow.
[2018-08-24 04:44] LABS: ALANINE AMINOTRANSFERASE 86 U/L (9-52); ALBUMIN 3.5 g/dL (3.5-5.0); ALKALINE PHOSPHATASE 62 U/L (38-126); ANION GAP 7 (5-19); ASPARTATE AMINO TRANSFERASE 47 U/L (14-36); BILIRUBIN,DIRECT 0.2 mg/dL (0.0-0.4); BILIRUBIN,TOTAL 0.5 mg/dL (0.2-1.3); BLOOD UREA NITROGEN 15 mg/dL (7-20); CALCIUM 8.8 mg/dL (8.4-10.2); CARBON DIOXIDE 25 mmol/L (22-30); CHLORIDE 109 mmol/L (98-107); GLUCOSE 117 mg/dL (75-110); POTASSIUM 4.1 mmol/L (3.6-5.0); SODIUM 141.4 mmol/L (137-145); TOTAL PROTEIN 6.1 g/dL (6.3-8.2)
[2018-08-24] MEDS: HEPARIN SOD (PORCINE) 5,000 UNIT/ML 1 ML SYRINGE SUBCUT SCH ×2 (06:23→13:04)
[2018-08-24] MEDS: FOLIC ACID 1 MG TABLET PO SCH (09:39)
[2018-08-24] MEDS: LISINOPRIL 10 MG TABLET PO SCH (09:40)
[2018-08-24] MEDS: HYDROCHLOROTHIAZIDE 25 MG TABLET PO SCH (09:44)
[2018-08-24] MEDS: FAMOTIDINE 20 MG TABLET PO SCH (09:44)
[2018-08-24] MEDS: METOPROLOL TARTRATE 25 MG TABLET PO SCH (09:45)
[2018-08-24 12:45] VITALS: BP 130/68
[2018-08-24 14:20] LABS: FREE T3 5.08 pg/mL (2.77-5.27); FREE T4 (FREE THYROXINE) 1.5 ng/dL (0.78-2.19)
[2018-08-24 16:39] LABS: HEPATITIS A AB IGM Negative (Negative); HEPATITIS B CORE AB IGM Negative (Negative); HEPATITS B SURFACE ANTIGEN Negative (Negative)
[2018-08-25 07:21] LABS: HEPATITIS C VIRUS ANTIBODY 0.1 s/co ratio (0.0-0.9)
--- NOTE | 2018-08-26 17:16 | PDOC DISCHARGE SUMMARY ---
General - Admit/Disc Date/PCP Admission Date/Primary Care Provider: 08/22/18 14:32 SINGH MEJIA PA-C Discharge Date: 08/24/18 - Discharge Diagnosis (1) Ventricular tachycardia (paroxysmal) Is this a current diagnosis for this admission?: Yes (2) H/O Crissy thyroiditis Is this a current diagnosis for this admission?: Yes (3) Obesity Is this a current diagnosis for this admission?: Yes (4) Rheumatoid arthritis Is this a current diagnosis for this admission?: No (5) Elevated LFTs Is this a current diagnosis for this admission?: Yes - Additional Information Resuscitation Status: Full Code Discharge Diet: As Tolerated Discharge Activity: Activity As Tolerated Prescriptions: RX: Metoprolol Tartrate [Lopressor 25 mg Tablet] 25 mg PO Q12 30 Days #60 tablet Home Medications: RX: Folic Acid [Folvite 1 mg Tablet] 2 mg PO DAILY 08/22/18 RX: Methotrexate Sodium [Rheumatrex 2.5 mg Tablet] 2.5 mg PO MO@22 08/22/18 RX: Potassium Chloride 10 meq PO DAILY 08/22/18 RX: Metoprolol Tartrate [Lopressor 25 mg Tablet] 25 mg PO Q12 30 Days #60 tablet 08/24/18 History of Present Illness History of Present Illness: DARRIAN PEREZ is a 43 year old female with a good history of rheumatoid arthritis, Crissy's thyroiditis on levothyroxine 50 MCG daily into to ED complaining of palpitations. She is stating that she felt transient palpitations twice in the last month but today she started having palpitation in the morning at 7:15 AM which was constant associated with mild lightheadedness and nausea which persisted until she got to ED. In ED she was found to be in V. tach was a started on an amiodarone drip which was not successful a trial of lidocaine was given which was successful but patient started having V. tach again. Dr. Weaver was called and recommendation was to start patient on esmolol and admit to ICU. Patient denies any IV drug use, surreptitious use of levothyroxine, recent stressors or any herbal meds. Eyes any chest pain, shortness of breath, nausea, vomiting, diarrhea, constipation, any urinary symptoms. Hospital Course Hospital Course: (1) Ventricular tachycardia (paroxysmal) Patient was transferred to ICU was started on esmolol drip transitioned to p.o. beta-blockers. Echo no abnormalities. No recurrence of V. tach. Cardiology was consulted. Repeat TSH undetectable. Appointment was made with Dr. Weaver as outpatient. (2) H/O Crissy thyroiditis Levothyroxine. TSH undetectable. Patient was asked to hold levothyroxine until seen by PCP. A lab order for repeat TSH, T3, T4 was provided. (3) Obesity Diet and lifestyle modification. (4) Rheumatoid arthritis In remission. Restart home meds. Outpatient rheumatology follow-up. (5) Elevated LFTs Likely due to methotrexate. Patient is aware of elevated liver functions in the past. Hepatitis panel pending. LFTs tomorrow. Outpatient PCP and rheumatology follow-up. Physical Exam Vital Signs: Temp Pulse Resp BP Pulse Ox 97.7 F 68 17 130/68 H 95 08/24/18 14:52 08/24/18 14:52 08/24/18 14:52 08/24/18 14:52 08/24/18 14:52 Intake & Output 08/25/18 08/26/18 08/27/18 06:59 06:59 06:59 Intake Total 1474 Output Total 350 Balance 1124 General appearance: PRESENT: obese Head exam: PRESENT: atraumatic, normocephalic Eye exam: PRESENT: conjunctiva pink, EOMI, PERRLA. ABSENT: scleral icterus Ear exam: PRESENT: normal external ear exam Mouth exam: PRESENT: moist, tongue midline Neck exam: ABSENT: carotid bruit, JVD, lymphadenopathy, thyromegaly Respiratory exam: PRESENT: clear to auscultation rick. ABSENT: rales, rhonchi, wheezes Cardiovascular exam: PRESENT: RRR. ABSENT: diastolic murmur, rubs, systolic murmur Pulses: PRESENT: normal dorsalis pedis pul Vascular exam: PRESENT: normal capillary refill GI/Abdominal exam: PRESENT: normal bowel sounds, soft. ABSENT: distended, guar ding, mass, organolmegaly, rebound, tenderness Rectal exam: PRESENT: deferred Extremities exam: PRESENT: full ROM. ABSENT: calf tenderness, clubbing, pedal edema Neurological exam: PRESENT: alert, awake, oriented to person, oriented to place, oriented to time, oriented to situation, CN II-XII grossly intact. ABSENT: motor sensory deficit Psychiatric exam: PRESENT: appropriate affect, normal mood. ABSENT: homicidal ideation, suicidal ideation Skin exam: PRESENT: dry, intact, warm. ABSENT: cyanosis, rash Results Laboratory Results: 08/23/18 04:31 08/24/18 03:54 08/22/18 08/22/18 08/23/18 12:20 12:20 04:31 Creatine Kinase 163 H CK-MB (CK-2) 2.97 Troponin I < 0.012 NT-Pro-B Natriuret Pep 149 H 119 Impressions: Chest X-Ray 08/22/18 12:19 IMPRESSION: CARDIAC ENLARGEMENT. VASCULAR CONGESTION. Qualifiers - * PATIENT BEING DISCHARGED WITH ANY OF THE FOLLOWING DIAGNOSIS: No
[2018-08-28] MEDS ORDERED: METHOTREXATE SODIUM 2.5 MG TABLET PO SCH (22:00)
== END 2018-08-24 15:25 | disposition home or self-care (01) | DRG 309 ==
LOC: ER 12:04 → EH 14:32 → ICU 17:45
PROVIDERS: ADMIT Hospitalist; ATTEND Hospitalist
DX: I47.2 Ventricular tachycardia (principal); Z68.42 Body mass index [BMI] 45.0-49.9, adult; I10 Essential (primary) hypertension; E05.00 Thyrotoxicosis with diffuse goiter without thyrotoxic crisis or storm; M06.9 Rheumatoid arthritis, unspecified; R74.8 Abnormal levels of other serum enzymes; E66.01 Morbid (severe) obesity due to excess calories; Z79.899 Other long term (current) drug therapy
CPT/HCPCS: 36415; 71045; 80053; 80074; 80307; 81001; 82550; 82553; 83605; 83735; 83880; 84439; 84443; 84481; 84484; 85025; 85652; 86140; 93005; 93010; 93306; 96361; 96365; 96366; 99285; J0282; J1644; J2001; J3490; J7030; J7060

== ENCOUNTER 2018-10-04 18:37 | Emergency (ER) | payer OTHER ==
--- NOTE | 2018-10-04 19:14 | ER Document Report ---
ED Medical Screen (RME) - General Chief Complaint: Chest Pain Stated Complaint: CHEST PAIN Time Seen by Provider: 10/04/18 19:05 Primary Care Provider: SINGH MEJIA PA-C [Primary Care Provider] - Follow up as needed Notes: 43-year-old female patient complaining of sharp right-sided chest pain with some shortness of breath started about 1745 today. She does report having a URI and being on antibiotics and steroids earlier in the month and then started a second course 2 days ago. Review of records shows she was on a Z-Raad and a Medrol Dosepak with some bronchodilator medication on 09/20/2018, she was started on doxycycline Flovent and prednisone on 10/02/2018. She was here about 6 weeks ago with runs of V. tach and eventually controlled on esmolol drip. She was admitted to the hospital for a few days at that time. I have greeted and performed a rapid initial assessment of this patient. A comprehensive ED assessment and evaluation of the patient, analysis of test results and completion of the medical decision making process will be conducted by additional ED providers. TRAVEL OUTSIDE OF THE [place] IN LAST 30 DAYS: No - Related Data Allergies/Adverse Reactions: Sulfa (Sulfonamide Antibiotics) Allergy (Unknown, Verified 08/22/18 15:30) Past Medical History - Social History Chew tobacco use (# tins/day): No Frequency of alcohol use: None Drug Abuse: None - Past Medical History Cardiac Medical History: Reports: Hx Hypertension Endocrine Medical History: Reports: Hx Graves' Disease - Patient is on Synthroid at this time Renal/ Medical History: Denies: Hx Peritoneal Dialysis Musculoskeltal Medical History: Reports Hx Arthritis - RA taking methotrexate Past Surgical History: Reports: Hx Adenoidectomy, Hx Cholecystectomy, Hx Hysterectomy, Hx Tonsillectomy - Immunizations Immunizations up to date: Yes Hx Diphtheria, Pertussis, Tetanus Vaccination: Yes - 11/2009 Physical Exam - Vital signs Vitals: Temp Pulse Resp BP Pulse Ox 97.7 F 65 20 158/94 H 96 10/04/18 18:48 10/04/18 18:48 10/04/18 18:48 10/04/18 18:48 10/04/18 18:48 Course - Vital Signs Vital signs: Temp Pulse Resp BP Pulse Ox 97.7 F 65 20 158/94 H 96 10/04/18 18:48 10/04/18 18:48 10/04/18 18:48 10/04/18 18:48 10/04/18 18:48 Doctor's Discharge - Discharge Referrals: SINGH MEJIA PA-C [Primary Care Provider] - Follow up as needed
--- NOTE | 2018-10-04 19:43 | RADIOLOGY REPORT (SQ) ---
EXAM DESCRIPTION: CHEST 2 VIEWS COMPLETED DATE/TIME: 10/04/2018 7:19 pm REASON FOR STUDY: Cough, bronchitis, right-sided chest pain COMPARISON: 08/22/2018 EXAM PARAMETERS: NUMBER OF VIEWS: two views TECHNIQUE: Digital Frontal and Lateral radiographic views of the chest acquired. RADIATION DOSE: NA LIMITATIONS: none FINDINGS: LUNGS AND PLEURA: Pulmonary vascular congestion somewhat accentuated by low lung volumes. MEDIASTINUM AND HILAR STRUCTURES: No masses or contour abnormalities. HEART AND VASCULAR STRUCTURES: Borderline heart size. No le pulmonary edema. BONES: No acute findings. HARDWARE: None in the chest. OTHER: No other significant finding. IMPRESSION: Borderline cardiomegaly with pulmonary vascular congestion but no le pulmonary edema. TECHNICAL DOCUMENTATION: JOB ID: [id number] [employer]- All Rights Reserved Reading location - IP/workstation name: [email or web address]
[2018-10-04 20:13] LABS: ABSOLUTE BASOPHILS # (AUTO) 0.1 10^3/uL (0.0-0.2); ABSOLUTE EOSINOPHILS # (AUTO) 0.1 10^3/uL (0.0-0.6); ABSOLUTE LYMPHOCYTES (AUTO) 2.5 10^3/uL (0.5-4.7); ABSOLUTE MONOCYTES (AUTO) 0.7 10^3/uL (0.1-1.4); ABSOLUTE NEUT (AUTO) 7.9 10^3/uL (1.7-8.2); BASOPHILS % (AUTO) 0.5 % (0-2); EOSINOPHILS % (AUTO) 0.7 % (0-6); HEMATOCRIT 41.4 % (36.0-47.0); HEMOGLOBIN 14.1 g/dL (12.0-15.5); LYMPHOCYTES % (AUTO) 22.7 % (13-45); MEAN CORPUSCULAR HEMOGLOBIN 30.7 pg (27.0-33.4); MEAN CORPUSCULAR VOLUME 90 fl (80-97); MONOCYTES % (AUTO) 5.8 % (3-13); PLATELET COUNT 191 10^3/uL (150-450); RED BLOOD COUNT 4.59 10^6/uL (3.72-5.28); RED CELL DISTRIBUTION WIDTH 14.5 % (11.5-14.0); SEGMENTED NEUTROPHILS % (AUTO) 70.3 % (42-78); TOTAL CELLS COUNTED % (AUTO) 100 %; WHITE BLOOD COUNT 11.2 10^3/uL (4.0-10.5)
--- NOTE | 2018-10-04 20:17 | ER Document Report ---
ED General - General Chief Complaint: Chest Pain Stated Complaint: CHEST PAIN Time Seen by Provider: 10/04/18 19:05 Primary Care Provider: SINGH MEJIA PA-C [Primary Care Provider] - Follow up as needed Notes: Patient is a 43-year-old female that comes to the emergency department for chief complaint of right-sided chest pain that is sharp, symptoms started at 1745 while she was sitting in her car, she states that she was feeling frequent sharp pains, this is improved but she still feels it occasionally. She has had a cough with wheezing, she was diagnosed with upper respiratory infection, started on Medrol and azithromycin, and pleased with this, felt better, felt worse again, now she has been on prednisone and doxycycline for 2 days. She was also admitted to the hospital recently after having an episode of V. tach, she now takes metoprolol and follows with science professor Dr. Weaver. She also has a h istory of hysterectomy, cholecystectomy, rheumatoid arthritis on methotrexate, hypothyroidism, hypertension. TRAVEL OUTSIDE OF THE [place] IN LAST 30 DAYS: No - Related Data Allergies/Adverse Reactions: Sulfa (Sulfonamide Antibiotics) Allergy (Unknown, Verified 08/22/18 15:30) Past Medical History - General Information source: Patient - Social History Smoking Status: Never Smoker Chew tobacco use (# tins/day): No Frequency of alcohol use: None Drug Abuse: None Lives with: Family Family History: Reviewed & Not Pertinent Patient has suicidal ideation: No Patient has homicidal ideation: No - Past Medical History Cardiac Medical History: Reports: Hx Hypertension Endocrine Medical History: Reports: Hx Graves' Disease - Patient is on Synthroid at this time Renal/ Medical History: Denies: Hx Peritoneal Dialysis Musculoskeletal Medical History: Reports Hx Arthritis - RA taking methotrexate Past Surgical History: Reports: Hx Adenoidectomy, Hx Cholecystectomy, Hx Hysterectomy, Hx Tonsillectomy - Immunizations Immunizations up to date: Yes Hx Diphtheria, Pertussis, Tetanus Vaccination: Yes - 11/2009 Review of Systems - Review of Systems Constitutional: See HPI EENT: No symptoms reported Cardiovascular: See HPI Respiratory: See HPI Gastrointestinal: No symptoms reported Genitourinary: No symptoms reported Female Genitourinary: No symptoms reported Musculoskeletal: See HPI Skin: No symptoms reported Hematologic/Lymphatic: No symptoms reported Neurological/Psychological: No symptoms reported Physical Exam - Vital signs Vitals: Temp Pulse Resp BP Pulse Ox 97.7 F 65 20 158/94 H 96 10/04/18 18:48 10/04/18 18:48 10/04/18 18:48 10/04/18 18:48 10/04/18 18:48 - Notes Notes: GENERAL: Alert, interacts well. No acute distress. HEAD: Normocephalic, atraumatic. EYES: Pupils equal, round, and reactive to light. Extraocular movements intact. ENT: Oral mucosa moist, tongue midline. Oropharynx unremarkable. Airway patent. Nares patent, no nasal septal hematoma, TM's intact. NECK: Full range of motion. Supple. Trachea midline. LUNGS: Clear to auscultation bilaterally, no wheezes, rales, or rhonchi. No respiratory distress. Occasional cough. Mild tenderness with palpation of the right pectoral muscle area, this is reproducible. HEART: Regular rate and rhythm. No murmur ABDOMEN: Soft, non-tender. Non-distended. Bowel sounds present in all 4 quadrants. GENITOURINARY: Deferred EXTREMITIES: Moves all 4 extremities spontaneously. No edema, normal radial and dorsalis pedis pulses bilaterally. No cyanosis. BACK: no cervical, thoracic, lumbar midline tenderness. No saddle anesthesia, normal distal neurovascular exam. NEUROLOGICAL: Alert and oriented x3. Normal speech. [cranial nerves II through XII grossly intact]. PSYCH: Normal affect, normal mood. SKIN: Warm, dry, normal turgor. No rashes or lesions noted. Course - Re-evaluation Re-evalutation: Patient is well-appearing on exam. Occasional cough, she does have tenderness with palpation of the right chest wall, she also explains that she was trying to picker feeder an ice bucket and may have strained the area. Pain is intermittent, sharp, right-sided only. Patient denies shortness of breath, she states she feels much better than she did before. Chest x-ray with possible vascular congestion and borderline cardiomegaly, this is not significantly changed from prior. Troponin is negative. EKG showing sinus rhythm with no T wave inversions or ST segment changes in consecutive leads, unremarkable VA and QTC intervals. CBC with mild leukocytosis, patient i s on prednisone. Chemistry generally unremarkable with mild hyperglycemia but no acidosis. Cardiac monitoring during her stay with no concerning abnormalities. BNP checked and is normal. I reevaluated patient, patient is ready to leave. I discussed possibly doing a CTA to rule out pulmonary embolism but after discussion this was deferred. Patient is not tachycardic, she has no shortness of breath, she has no dyspnea on exertion, she has no bilateral lower extremity swelling, history of PE, smoking, hormone use, travel or surgery. Because of patient's very atypical pain, pain on palpation, negative workup so far, I have very low suspicion of ACS. As result patient was discharged at this time with follow-up instructions and return precautions. Patient is already on prednisone, as result she will not be placed on anti-inflammatories, I did agree to give her a small amount of pain medication to take only if needed for sleep, she will take Tylenol otherwise, she was also given a muscle relaxer. Patient states satisfaction and agreement with plan. - Vital Signs Vital signs: Temp Pulse Resp BP Pulse Ox 97.7 F 65 16 138/80 H 97 10/04/18 18:48 10/04/18 18:48 10/04/18 23:00 10/04/18 23:00 10/04/18 23:00 - Laboratory Result Diagrams: 10/04/18 19:55 10/04/18 19:55 Laboratory results interpreted by me: 10/04/18 10/04/18 19:55 19:55 WBC 11.2 H RDW 14.5 H Creatinine 0.50 L Glucose 199 H AST 62 H ALT 108 H Creatine Kinase 155 H Discharge - Discharge Clinical Impression: Atypical chest pain, Cough, Right-sided chest pain Condition: Stable Disposition: HOME, SELF-CARE Additional Instructions: Your examination and workup at this time is reassuring. This is most likely pain from the chest wall, and possibly pleurisy pain as we discussed. This can take time to resolve. I recommend heat over the right side of the chest, continue the current medications, you can take provided muscle relaxer. Take Tylenol for pain. Use the stronger pain medicine only if needed for severe coughing/pain and not being able to sleep. Follow-up closely with your primary care. Return if you worsen including severe worsening pain, fever, difficulty breathing, passing out, or any other concerning or worsening symptoms. Prescriptions: Hydrocodone/Acetaminophen [[place] 5-325 mg Tablet] 1 - 2 tab PO ASDIR #6 tablet Methocarbamol [Robaxin-750] 750 mg PO QID PRN #20 tablet PRN Reason: Referrals: SINGH MEJIA PA-C [Primary Care Provider] - Follow up as needed
[2018-10-04 20:29] LABS: ALANINE AMINOTRANSFERASE 108 U/L (9-52); ALBUMIN 3.8 g/dL (3.5-5.0); ALKALINE PHOSPHATASE 94 U/L (38-126); ANION GAP 9 (5-19); ASPARTATE AMINO TRANSFERASE 62 U/L (14-36); BILIRUBIN,DIRECT 0.2 mg/dL (0.0-0.4); BILIRUBIN,TOTAL 0.3 mg/dL (0.2-1.3); BLOOD UREA NITROGEN 14 mg/dL (7-20); CALCIUM 8.4 mg/dL (8.4-10.2); CARBON DIOXIDE 26 mmol/L (22-30); CHLORIDE 105 mmol/L (98-107); CREATINE KINASE 155 U/L (30-135); GLUCOSE 199 mg/dL (75-110); POTASSIUM 3.6 mmol/L (3.6-5.0); SODIUM 140.2 mmol/L (137-145); TOTAL PROTEIN 6.6 g/dL (6.3-8.2)
[2018-10-04] MEDS ORDERED: HYDROCODONE/ACETAMINOPHEN 5-325 MG (6 TAB/ER DISP) PO PRN (23:01)
--- NOTE | 2018-10-04 23:21 | EKG REPORT ---
SEVERITY:- NORMAL ECG - SINUS RHYTHM : Confirmed by: Brielle Bustamante 04-Oct-2018 23:21:01
[2018-10-04 23:23] VITALS: BP 138/80
== END 2018-10-04 23:23 | disposition home or self-care (01) ==
LOC: ER 18:37
DX: R07.89 Other chest pain (principal); R05 Cough; R06.2 Wheezing; D72.829 Elevated white blood cell count, unspecified; R73.9 Hyperglycemia, unspecified; I10 Essential (primary) hypertension; I47.2 Ventricular tachycardia; M06.9 Rheumatoid arthritis, unspecified; Z79.899 Other long term (current) drug therapy; Z88.2 Allergy status to sulfonamides
CPT/HCPCS: 36415; 71046; 80053; 82550; 83880; 84484; 85025; 93005; 93010; 99285

== ENCOUNTER 2018-11-22 16:10 | Emergency (ER) | payer OTHER ==
--- NOTE | 2018-11-22 17:23 | ER Document Report ---
ED Medical Screen (RME) - General Chief Complaint: Headache Stated Complaint: HEADACHE Primary Care Provider: SINGH MEJIA PA-C [Primary Care Provider] - Follow up as needed Mode of Arrival: Ambulatory Information source: Patient Notes: 43-year-old female presented to ED for complaint of severe headache with elevated blood pressure she is on metoprolol. She states that she has a history of high blood pressure and an irregular heartbeat and came into the emergency room and they told she had come some kind of tachycardia. She is also had a history of a removal of tonsils and adenoids and partial hysterectomy as well as a gallbladder surgery. She states that her blood pressure was 154/110 at home it is 159/88 in the emergency room. She does have no obvious neurological deficits. She is got equal security incident response specialist no drift equal pedal pushes patient symmetry. She is alert oriented respiratory regular and unlabored speaking in full sentences and able to walk with a even steady gait. She states that she is not nauseated at this time although she was earlier. I have greeted and performed a rapid initial assessment of this patient. A comprehensive ED assessment and evaluation of the patient, analysis of test results and completion of medical decision making process will be conducted by an additional ED providers. TRAVEL OUTSIDE OF THE [place] IN LAST 30 DAYS: No - Related Data Allergies/Adverse Reactions: Sulfa (Sulfonamide Antibiotics) Allergy (Unknown, Verified 11/22/18 16:11) Past Medical History - Past Medical History Cardiac Medical History: Reports: Hx Hypertension Endocrine Medical History: Reports: Hx Graves' Disease - Patient is on Synthroid at this time Renal/ Medical History: Denies: Hx Peritoneal Dialysis Musculoskeltal Medical History: Reports Hx Arthritis - RA taking methotrexate Past Surgical History: Reports: Hx Adenoidectomy, Hx Cholecystectomy, Hx Hysterectomy, Hx Tonsillectomy - Immunizations Immunizations up to date: Yes Hx Diphtheria, Pertussis, Tetanus Vaccination: Yes - 11/2009 Doctor's Discharge - Discharge Referrals: SINGH MEJIA PA-C [Primary Care Provider] - Follow up as needed
[2018-11-22 18:58] LABS: ABSOLUTE EOSINOPHILS # (AUTO) 0.4 10^3/uL (0.0-0.6); ABSOLUTE LYMPHOCYTES (AUTO) 2.1 10^3/uL (0.5-4.7); ABSOLUTE MONOCYTES (AUTO) 0.6 10^3/uL (0.1-1.4); BASOPHILS % (AUTO) 0.4 % (0-2); EOSINOPHILS % (AUTO) 4.3 % (0-6); HEMATOCRIT 43.1 % (36.0-47.0); HEMOGLOBIN 14.6 g/dL (12.0-15.5); LYMPHOCYTES % (AUTO) 22.8 % (13-45); MEAN CORPUSCULAR HEMOGLOBIN 30.6 pg (27.0-33.4); MEAN CORPUSCULAR VOLUME 90 fl (80-97); MONOCYTES % (AUTO) 6.7 % (3-13); PLATELET COUNT 214 10^3/uL (150-450); RED BLOOD COUNT 4.79 10^6/uL (3.72-5.28); RED CELL DISTRIBUTION WIDTH 13.3 % (11.5-14.0); SEGMENTED NEUTROPHILS % (AUTO) 65.8 % (42-78); TOTAL CELLS COUNTED % (AUTO) 100 %; WHITE BLOOD COUNT 9.2 10^3/uL (4.0-10.5)
[2018-11-22 19:18] LABS: ALANINE AMINOTRANSFERASE 50 U/L (9-52); ALBUMIN 3.9 g/dL (3.5-5.0); ALKALINE PHOSPHATASE 91 U/L (38-126); ANION GAP 9 (5-19); ASPARTATE AMINO TRANSFERASE 34 U/L (14-36); BILIRUBIN,DIRECT 0.2 mg/dL (0.0-0.4); BILIRUBIN,TOTAL 0.4 mg/dL (0.2-1.3); BLOOD UREA NITROGEN 11 mg/dL (7-20); CALCIUM 9.2 mg/dL (8.4-10.2); CARBON DIOXIDE 30 mmol/L (22-30); CHLORIDE 103 mmol/L (98-107); GLUCOSE 117 mg/dL (75-110); LIPASE 71.6 U/L (23-300); POTASSIUM 3.8 mmol/L (3.6-5.0); SODIUM 141.6 mmol/L (137-145)
[2018-11-22 19:21] LABS: APPEARANCE,URINE CLEAR; BILIRUBIN,URINE NEGATIVE (NEGATIVE); COLOR,URINE YELLOW; GLUCOSE, URINE NEGATIVE (NEGATIVE); KETONES,URINE NEGATIVE (NEGATIVE); LEUKOCYTE ESTERASE,URINE NEGATIVE (NEGATIVE); NITRITE,URINE NEGATIVE (NEGATIVE); PROTEIN,URINE 30 mg/dL (NEGATIVE); URINE SPECIFIC GRAVITY 1.029; UROBILINOGEN,URINE NEGATIVE mg/dL (<2.0)
[2018-11-22] MEDS ORDERED: ACETAMINOPHEN 325 MG TABLET PO ONE (20:15)
== END 2018-11-22 23:42 | disposition left against medical advice (07) ==
LOC: ER 16:10
DX: R51 Headache (principal); I10 Essential (primary) hypertension; I49.9 Cardiac arrhythmia, unspecified; Z79.899 Other long term (current) drug therapy; Z88.2 Allergy status to sulfonamides; Z53.20 Procedure and treatment not carried out because of patient's decision for unspecified reasons
CPT/HCPCS: 36415; 80053; 81001; 83690; 84703; 85025; 99281

== ENCOUNTER 2019-03-18 08:45 | Emergency (ER) | payer OTHER ==
--- NOTE | 2019-03-18 09:25 | ER Document Report ---
ED Medical Screen (RME) - General Chief Complaint: Abdominal Pain Stated Complaint: RIGHT SIDE PAIN Time Seen by Provider: 03/18/19 09:16 Primary Care Provider: SINGH MEJIA PA-C [Primary Care Provider] - Follow up as needed Notes: Patient is a 43-year-old female with a history of hypertension who presents to the emergency department with a chief complaint of right upper quadrant pain. Patient states this started last night. Patient reports that is intermittent and sharp and stabbing in nature. Patient reports she has had a partial hysterectomy and her gallbladder removed. Patient reports hot sweats. Patient reports the right upper quadrant pain is worse with movement or when she lies on her right side. Patient denies nausea, vomiting or diarrhea. Patient reports the pain radiates into her right flank area. Patient denies a history of kidney stones. Patient denies urinary symptoms. Patient denies recent injury or heavy lifting. Patient reports her last bowel movement was today and normal for her. Patient denies fever. TRAVEL OUTSIDE OF THE [place] IN LAST 30 DAYS: No - Related Data Allergies/Adverse Reactions: Sulfa (Sulfonamide Antibiotics) Allergy (Unknown, Verified 03/18/19 08:51) Past Medical History - Social History Chew tobacco use (# tins/day): No Frequency of alcohol use: Occasional Drug Abuse: None - Past Medical History Cardiac Medical History: Reports: Hx Hypertension Endocrine Medical History: Reports: Hx Graves' Disease - Patient is on Synthroid at this time Renal/ Medical History: Denies: Hx Peritoneal Dialysis Musculoskeltal Medical History: Reports Hx Arthritis - RA taking methotrexate Past Surgical History: Reports: Hx Adenoidectomy, Hx Cholecystectomy, Hx Hysterectomy, Hx Tonsillectomy - Immunizations Immunizations up to date: Yes Hx Diphtheria, Pertussis, Tetanus Vaccination: Yes - 11/2009 Physical Exam - Vital signs Vitals: Temp Pulse Resp BP Pulse Ox 98.1 F 66 18 125/82 96 03/18/19 08:52 03/18/19 08:52 03/18/19 08:52 03/18/19 08:52 03/18/19 08:52 - Abdominal Inspection: Normal Distension: No distension Bowel sounds: Normal Tenderness: Tender - RUQ tenderness Organomegaly: No organomegaly - Back Back: Normal Notes: NO CVA tenderness. Course - Re-evaluation Re-evalutation: 03/18/19 09:24 I have greeted and performed a rapid initial assessment of this patient. A comprehensive ED assessment and evaluation of the patient, analysis of test results and completion of the medical decision making process will be conducted by additional ED providers. - Vital Signs Vital signs: Temp Pulse Resp BP Pulse Ox 98.1 F 66 18 125/82 96 03/18/19 08:52 03/18/19 08:52 03/18/19 08:52 03/18/19 08:52 03/18/19 08:52 Doctor's Discharge - Discharge Referrals: SINGH MEJIA PA-C [Primary Care Provider] - Follow up as needed
[2019-03-18 10:08] LABS: ABSOLUTE EOSINOPHILS # (AUTO) 0.2 10^3/uL (0.0-0.6); ABSOLUTE LYMPHOCYTES (AUTO) 2.3 10^3/uL (0.5-4.7); ABSOLUTE MONOCYTES (AUTO) 0.8 10^3/uL (0.1-1.4); ABSOLUTE NEUT (AUTO) 9.3 10^3/uL (1.7-8.2); BASOPHILS % (AUTO) 0.4 % (0-2); EOSINOPHILS % (AUTO) 1.7 % (0-6); HEMATOCRIT 40.7 % (36.0-47.0); HEMOGLOBIN 13.8 g/dL (12.0-15.5); LYMPHOCYTES % (AUTO) 18.1 % (13-45); MEAN CORPUSCULAR HEMOGLOBIN 30.4 pg (27.0-33.4); MEAN CORPUSCULAR VOLUME 89 fl (80-97); MONOCYTES % (AUTO) 6.2 % (3-13); PLATELET COUNT 222 10^3/uL (150-450); RED BLOOD COUNT 4.55 10^6/uL (3.72-5.28); RED CELL DISTRIBUTION WIDTH 13.6 % (11.5-14.0); SEGMENTED NEUTROPHILS % (AUTO) 73.6 % (42-78); TOTAL CELLS COUNTED % (AUTO) 100 %; WHITE BLOOD COUNT 12.6 10^3/uL (4.0-10.5)
[2019-03-18] MEDS ORDERED: NORMAL SALINE 1000 ML 1,000 ML IV ONE (10:08)
[2019-03-18] MEDS ORDERED: KETOROLAC TROMETHAMINE INJ/PF 30 MG/1 ML SDV IV ONE (10:08)
--- NOTE | 2019-03-18 10:15 | ER Document Report ---
ED GI/ - General Chief Complaint: Abdominal Pain Stated Complaint: RIGHT SIDE PAIN Time Seen by Provider: 03/18/19 09:16 Primary Care Provider: KEN COREA MD [ACTIVE STAFF] - 03/20/19 SINGH MEJIA PA-C [Primary Care Provider] - Follow up as needed Notes: Patient is a 43 year old female who presents to the emergency department with a chief complaint of right upper quadrant abdominal pain. Her pain started y esterday. She describes her pain as an intermittent sharp/stabbing pain. She is having normal bowel movements. Her last bowel movement was today. Denies any diarrhea. She has a history of a cholecystectomy and a partial hysterectomy. She still has both ovaries. She also has a past medical history of hypertension and rheumatoid arthritis. 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 TRAVEL OUTSIDE OF THE [place] IN LAST 30 DAYS: No - Related Data Allergies/Adverse Reactions: Sulfa (Sulfonamide Antibiotics) Allergy (Unknown, Verified 03/18/19 08:51) Past Medical History - Social History Smoking Status: Never Smoker Chew tobacco use (# tins/day): No Frequency of alcohol use: Occasional Drug Abuse: None Family History: Reviewed & Not Pertinent Patient has suicidal ideation: No Patient has homicidal ideation: No - Past Medical History Cardiac Medical History: Reports: Hx Hypertension Endocrine Medical History: Reports: Hx Graves' Disease - Patient is on Synthroid at this time Renal/ Medical History: Denies: Hx Peritoneal Dialysis Musculoskeletal Medical History: Reports Hx Arthritis - RA taking methotrexate Past Surgical History: Reports: Hx Adenoidectomy, Hx Cholecystectomy, Hx Hysterectomy, Hx Tonsillectomy - Immunizations Immunizations up to date: Yes Hx Diphtheria, Pertussis, Tetanus Vaccination: Yes - 11/2009 Review of Systems - Review of Systems Notes: REVIEW OF SYSTEMS: CONSTITUTIONAL : Denies recent illness. Denies recent unintentional weight loss. Denies fever, chills, or sweats. EENT: Denies eye, ear, throat, or mouth pain, discharge, or symptoms. Denies nasal or sinus congestion. CARDIOVASCULAR: Denies chest pain. RESPIRATORY: Denies shortness of breath, cough, congestion, difficulty breathing, or wheezing. GASTROINTESTINAL: See HPI GENITOURINARY: Denies difficulty urinating, burning, blood in urine, urgency or frequency. MUSCULOSKELETAL: Denies neck and back pain. Denies joint pain or swelling. SKIN: Denies rash, itchiness, or lesions HEMATOLOGIC : Denies easy bruising or bleeding. LYMPHATIC: Denies swollen, painful, enlarged glands. NEUROLOGICAL: Denies no numbness or tingling denies weakness. Denies headache. Denies altered mental status. Denies alteration in speech. PSYCHIATRIC: Denies stress, anxiety, alteration in sleep patterns, or depression. All other systems reviewed and negative. Physical Exam - Vital signs Vitals: Temp Pulse Resp BP Pulse Ox 98.1 F 66 18 125/82 96 03/18/19 08:52 03/18/19 08:52 03/18/19 08:52 03/18/19 08:52 03/18/19 08:52 - Notes Notes: PHYSICAL EXAMINATION: GENERAL: Appears well, healthy, well-nourished, no acute distress. HEAD: Normocephalic, atraumatic. EYES: PERRL, conjunctiva normal, all extraocular movements intact, sclera nonicteric ENT: Moist mucous membranes. NECK: Supple, no noticeable swelling, redness, rash. Normal range of motion. LUNGS: Equal breath sounds bilaterally and clear to auscultation. No wheezes rales or rhonchi. CARDIOVASCULAR: S1-S2, regular rate, regular rhythm. Radial pulses 2+, normal. ABDOMEN: Normoactive bowel sounds. Soft, tender right lateral abdomen, mild guarding to right lateral abdomen, no rebound tenderness, and no masses palpated. EXTREMITIES: Normal strength and range of motion, no pitting or edema. No cyanosis. NEUROLOGICAL: Moves all extremities upon command. Strength 5/5 in all ext remities. PSYCH: Normal mood, normal affect. SKIN: Warm, dry. No rash, lesions, ulcerations noted. Normal skin turgor. BACK: Right CVA tenderness noted. No CVA tenderness on the left. Course - Re-evaluation Re-evalutation: 03/18/19 10:16 Based off patient's physical exam, she will be sent for right upper quadrant ultrasound and a renal ultrasound. 03/18/19 11:45 Patient has a mild leukocytosis of 12,600. No anemia noted. Her chemistries are unremarkable at this time. Her urine shows a small amount of blood. 03/18/19 13:[address] of the abdomen pelvis shows a 9 cm ovarian cyst. I called Dr. Corea and the patient will be placed on the floor to go to surgery. Transvaginal ultrasound will be ordered to evaluate blood flow. 03/18/19 16:27 I was called by Dr. Corea and she said that since the does not have a torsed ovary, the patient can be sent home. Patient is now on the floor. I will see the patient and discharge her from there. - Vital Signs Vital signs: Temp Pulse Resp BP Pulse Ox 99.2 F 70 20 136/87 H 97 03/18/19 17:28 03/18/19 17:28 03/18/19 17:28 03/18/19 17:28 03/18/19 17:28 - Laboratory Result Diagrams: 03/18/19 09:50 03/18/19 09:50 Laboratory results interpreted by me: 03/18/19 03/18/19 03/18/19 09:50 09:50 09:50 WBC 12.6 H Absolute Neuts (auto) 9.3 H Glucose 143 H Urine Blood SMALL H Discharge - Discharge Clinical Impression: Ovarian cyst Qualifiers: Laterality: left Qualified Code(s): N83.202 - Unspecified ovarian cyst, left side Condition: Stable Disposition: HOME, SELF-CARE Additional Instructions: You were seen today in the emergency department for abdominal pain. You have a 9 cm ovarian cyst. Please do not eat or drink anything Tuesday night starting at midnight. Go into [facility] on Tuesday to schedule surgery on Tuesday afternoon. You are also being sent home with pain medication. You can take 1 tablet every 4-6 hours as needed for your pain. If you have worsening symptoms, please return to the emergency department. Prescriptions: Oxycodone HCl/Acetaminophen [Percocet 5-325 mg Tablet] 1 - 2 tab PO Q4HP PRN #28 tablet PRN Reason: Referrals: SINGH MEJIA PA-C [Primary Care Provider] - Follow up as needed KEN COREA MD [ACTIVE STAFF] - 03/20/19
[2019-03-18 10:20] LABS: ALBUMIN 3.7 g/dL (3.5-5.0); ALKALINE PHOSPHATASE 77 U/L (38-126); ANION GAP 9 (5-19); APPEARANCE,URINE CLEAR; ASPARTATE AMINO TRANSFERASE 27 U/L (14-36); BILIRUBIN,DIRECT 0.2 mg/dL (0.0-0.4); BILIRUBIN,TOTAL 0.6 mg/dL (0.2-1.3); BILIRUBIN,URINE NEGATIVE (NEGATIVE); BLOOD UREA NITROGEN 13 mg/dL (7-20); CALCIUM 9.7 mg/dL (8.4-10.2); CARBON DIOXIDE 29 mmol/L (22-30); CHLORIDE 101 mmol/L (98-107); COLOR,URINE YELLOW; GLUCOSE 143 mg/dL (75-110); GLUCOSE, URINE NEGATIVE (NEGATIVE); KETONES,URINE NEGATIVE (NEGATIVE); LEUKOCYTE ESTERASE,URINE NEGATIVE (NEGATIVE); NITRITE,URINE NEGATIVE (NEGATIVE); POTASSIUM 3.9 mmol/L (3.6-5.0); PROTEIN,URINE NEGATIVE (NEGATIVE); TOTAL PROTEIN 6.7 g/dL (6.3-8.2); URINE SPECIFIC GRAVITY 1.013; UROBILINOGEN,URINE NEGATIVE mg/dL (<2.0)
--- NOTE | 2019-03-18 11:13 | RADIOLOGY REPORT (SQ) ---
EXAM DESCRIPTION: U/S ABDOMEN LIMITED W/O DOP COMPLETED DATE/TIME: 03/18/2019 10:56 am REASON FOR STUDY: right flank/RUQ pain COMPARISON: None. TECHNIQUE: Dynamic and static grayscale images acquired of the right upper quadrant and recorded on PACS. Additional selected color Doppler and spectral images recorded. LIMITATIONS: Limited study due to the patient's body habitus. FINDINGS: PANCREAS: Not visualized. LIVER: No masses. Increased echotexture. LIVER VASCULATURE: Unable to visualize. GALLBLADDER: Surgically absent. ULTRASOUND-DETECTED BROWN'S SIGN: Negative. INTRAHEPATIC DUCTS AND COMMON DUCT: Intrahepatic bile ducts not dilated. Unable to visualize the ext rahepatic ducts. INFERIOR VENA CAVA: Not visualized. AORTA: Not visualized. RIGHT KIDNEY: Normal size. Normal echogenicity. No solid or suspicious masses. No hydronephrosis. No calcifications. PERITONEAL CAVITY AND RIGHT PLEURAL SPACE: No ascites or effusions. OTHER: No other significant finding. IMPRESSION: LIMITED STUDY. FATTY INFILTRATION OF THE LIVER. NO OTHER GROSS ABNORMALITY. TECHNICAL DOCUMENTATION: JOB ID: [id number] [employer]- All Rights Reserved Reading location - IP/workstation name: [email or web address]
--- NOTE | 2019-03-18 11:14 | RADIOLOGY REPORT (SQ) ---
EXAM DESCRIPTION: U/S RETROPERITON (RENAL/AORTA) COMPLETED DATE/TIME: 03/18/2019 10:57 am REASON FOR STUDY: right flank/RUQ pain COMPARISON: None. TECHNIQUE: Dynamic and static grayscale images acquired of the kidneys and bladder and recorded on P ACS. Additional selected color Doppler and spectral images recorded. LIMITATIONS: Extremely limited visualization due to the patient's body habitus. FINDINGS: RIGHT KIDNEY: Normal size. Normal echogenicity. No solid or suspicious masses. No hydronep hrosis. No calcifications. LEFT KIDNEY: Normal size. Normal echogenicity. No solid or suspicious masses. No hydronephrosis. No calcifications. BLADDER: Empty. OTHER FINDINGS: No other significant finding. IMPRESSION: LIMITED STUDY. UNREMARKABLE APPEARANCE OF THE KIDNEYS. NO HYDRONEPHROSIS. TECHNICAL DOCUMENTATION: JOB ID: [id number] [employer]- All Rights Reserved Reading location - IP/workstation name: [email or web address]
--- NOTE | 2019-03-18 12:42 | RADIOLOGY REPORT (SQ) ---
EXAM DESCRIPTION: CT ABD/PELVIS WITH IV ONLY COMPLETED DATE/TIME: 03/18/2019 12:19 pm REASON FOR STUDY: right lateral abd pain COMPARISON: 05/19/2018. TECHNIQUE: CT scan of the abdomen and pelvis performed using helical scanning technique with dynamic intravenous contrast injection. No oral contrast. Images reviewed with lung, soft tissue, and bone windows. Reconstructed coronal and sagittal MPR images reviewed. Delayed images for evaluation of the urinary system also acquired. All images stored on PACS. All CT scanners at this facility use dose modulation, iterative reconstruction, and/or weight based d osing when appropriate to reduce radiation dose to as low as reasonably achievable (ALARA). [facility]: Dose Right [facility]: CareDose [facility]: Dose Right [facility]: Teradose 4D [facility]: MangoPlate CONTRAST TYPE AND DOSE: contrast/concentration: Isovue 350.00 mg/ml; Total Contrast Delivered: 99.0 ml; Total Saline Delivered: 72.0 ml 99 mL Omnipaque 350- low osmolar. RENAL FUNCTION: BUN 13 creatinine 0.55. RADIATION DOSE: CT Rad equipment meets quality standard of care and radiation dose reduction techniq ues were employed. CTDIvol: 21.1 mGy. DLP: 2363 mGy-cm.. LIMITATIONS: None. FINDINGS: LOWER CHEST: No significant findings. No nodules or infiltrates. LIVER: Normal size. Marked diffuse fatty infiltration. No masses. No dilated ducts. SPLEEN: Normal size. No focal lesions. PANCREAS: No masses. No significant calcifications. No adjacent inflammation or peripancreatic fluid collections. Pancreatic duct not dilated. GALLBLADDER: No identified stones by CT criteria. No inflammatory changes to suggest cholecystitis. ADRENAL GLANDS: No significant masses or asymmetry. RIGHT KIDNEY AND URETER: No solid masses. No significant calcifications. No hydronephrosis or hyd roureter. LEFT KIDNEY AND URETER: No solid masses. No significant calcifications. No hydronephrosis or hydr oureter. AORTA AND VESSELS: No aneurysm. No dissection. Renal arteries, SMA, celiac without stenosis. RETROPERITONEUM: No retroperitoneal adenopathy, hemorrhage or masses. BOWEL AND PERITONEAL CAVITY: No masses or inflammatory changes. No free fluid or peritoneal masses. APPENDIX: Normal. PELVIS: Septated left ovarian cyst, the largest component measuring 9 cm. No free fluid. Normal blad deanne. ABDOMINAL WALL: No masses. No hernias. BONES: No significant or acute findings. OTHER: No other significant finding. IMPRESSION: 1. 9 CM LEFT OVARIAN CYST. ON THE PRIOR STUDY (MAY 2018) THIS CYST MEASURED 6 CM. 2. DIFFUSE FATTY INFILTRATION OF THE LIVER. 3. NO OTHER SIGNIFICANT OR ACUTE FINDING IN THE ABDOMEN OR PELVIS ON CT SCAN WITH IV CONTRAST. TECHNICAL DOCUMENTATION: JOB ID: [id number] Quality ID # [id number]: Final reports with documentation of one or more dose reduction techniques (e.g., Au tomated exposure control, adjustment of the mA and/or kV according to patient size, use of iterative reconstruction technique) 2010 [employer]- All Rights Reserved Reading location - IP/workstation name: [email or web address]
[2019-03-18] MEDS ORDERED: MORPHINE SULFATE 10 MG/ML INJ IV ONE (15:03)
--- NOTE | 2019-03-18 15:33 | RADIOLOGY REPORT (SQ) ---
EXAM DESCRIPTION: U/S NON OB PEL TV W/DOPPLER COMPLETED DATE/TIME: 03/18/2019 3:17 pm REASON FOR STUDY: ovarian cyst; eval bloodflow COMPARISON: CT dated 03/18/2019. TECHNIQUE: Dynamic and static grayscale images acquired of the pelvis via transvaginal approach and recorded on PACS. Additional selected color Doppler and spectral images recorded. LIMITATIONS: Limited study due to the patient's body habitus. FINDINGS: UTERUS: Surgically absent. RIGHT OVARY AND DOPPLER: Ovary not visualized. LEFT OVARY AND DOPPLER: 10.2 cm simple cyst. Normal arterial vascular flow without evidence for tors ion. FREE FLUID: None noted. OTHER: No other significant finding. MEASUREMENTS: UTERUS: Not applicable. ENDOMETRIAL STRIPE: Not applicable. RIGHT OVARY: Not visualized. LEFT OVARY: 9.5 x 9.8 x 10.3 cm. IMPRESSION: LARGE LEFT OVARIAN CYST. NO EVIDENCE OF TORSION. TECHNICAL DOCUMENTATION: JOB ID: [id number] [employer]- All Rights Reserved Rev-12/02 Reading location - IP/workstation name: [email or web address]
[2019-03-18 17:56] VITALS: BP 136/87
== END 2019-03-18 16:04 | disposition home or self-care (01) ==
LOC: ER 08:45 → UNDOADMIN 15:17 → EH 15:17 → 2N 16:10 → EH 17:11 → 2N 17:11
DX: N83.292 Other ovarian cyst, left side (principal); R10.11 Right upper quadrant pain; R31.9 Hematuria, unspecified; D72.829 Elevated white blood cell count, unspecified; I10 Essential (primary) hypertension; Z90.49 Acquired absence of other specified parts of digestive tract; Z90.711 Acquired absence of uterus with remaining cervical stump; Z88.2 Allergy status to sulfonamides
CPT/HCPCS: 99284; 96361; 96374; 96375; 36415; 83690; 85025; 80053; 81001; 76770; 76705; 76830; 93976; 74177; J1885; J2270; J7030

== ENCOUNTER 2019-03-20 10:34 | Day surgery (SDC) | payer OTHER ==
[2019-03-20] MEDS ORDERED: BUPIVACAINE HCL 0.25 % INJ/PF (2.5 MG/1 ML) 30 ML VIAL ONE (10:45)
[2019-03-20] MEDS ORDERED: SCOPOLAMINE HYDROBROMIDE 1.5 MG PATCH.TD72 ONE (11:51)
[2019-03-20] MEDS ORDERED: FAMOTIDINE INJ/PF 20 MG/2 ML SDV IV ONE (11:51)
[2019-03-20] MEDS ORDERED: RINGERS SOLUTION,LACTATED 1,000 ML IV PRN (11:52)
[2019-03-20] MEDS ORDERED: SCOPOLAMINE HYDROBROMIDE 1.5 MG PATCH.TD72 TD PRN (11:52)
[2019-03-20] MEDS ORDERED: FAMOTIDINE INJ/PF 20 MG/2 ML SDV IV PRN (11:53)
[2019-03-20] MEDS ORDERED: MIDAZOLAM 2 MG/2 ML INJ ONE (11:56)
[2019-03-20] MEDS ORDERED: HYDROMORPHONE HCL INJ/PF 2 MG/ML AMPULE ONE (11:56)
[2019-03-20] MEDS ORDERED: FENTANYL CITRATE INJ/PF 250 MCG/5 ML AMPULE ONE (11:56)
[2019-03-20] MEDS ORDERED: PROPOFOL INJ 200 MG/20 ML VIAL IV ONE (11:56)
[2019-03-20] MEDS ORDERED: PROMETHAZINE HCL INJ 25 MG/1 ML VIAL IV PRN ×2 (13:04→14:24)
[2019-03-20] MEDS ORDERED: MEPERIDINE HCL/PF INJ 25 MG/1 ML DISP.SYRIN IV PRN (13:04)
[2019-03-20] MEDS ORDERED: DIPHENHYDRAMINE HCL 50 MG/ML VIAL IV PRN (13:04)
[2019-03-20] MEDS ORDERED: FENTANYL CITRATE INJ/PF 100 MCG/2 ML AMPUL IV PRN ×3 (13:04)
[2019-03-20] MEDS ORDERED: MORPHINE SULFATE 10 MG/ML INJ IV PRN (13:04)
--- NOTE | 2019-03-20 14:04 | Operative Report ---
Operative Report DATE OF SURGERY: 03/20/19 PREOPERATIVE DIAGNOSIS: Large left ovarian cyst POSTOPERATIVE DIAGNOSIS: Same OPERATION: Diagnostic laparoscopy with drainage of left cyst and left cystectomy SURGEON: QUIANA PETIT ANESTHESIA: GA TISSUE REMOVED OR ALTERED: Left ovarian cyst COMPLICATIONS: None ESTIMATED BLOOD LOSS: 2 mL INTRAOPERATIVE FINDINGS: Approximately 9 cm left ovarian cyst; 200 mL of clear fluid drained from the cyst; normal left ovarian tissue adjacent to cyst; normal right tube and ovary PROCEDURE: The patient was taken to the operating room where general anesthesia was obtained without difficulty. She was then placed in dorsal supine lithotomy position and prepped and draped in the normal sterile fashion. A sponge stick was placed in the patient's vagina as a means to manipulate the posterior cul-de-sac secondary to her lack of a uterus. Attention was then turned to the patient's abdomen where a 10 mm skin incision was then made in the umbilicus. The Optiview trocar with 0 laparoscope was then advanced without difficulty under direct visualization with the Optiview trocar. This was performed while tenting the abdominal wall. Intraperitoneal placement was confirmed by the direct visualization. Pneumoperitoneum was then obtained with approximately 4 L carbon dioxide gas. Survey of the patient's abdomen and pelvis revealed findings as noted above. Two 5 mm lateral ports were placed under direct visualization. It was noted that this patient had undergone a hysterectomy. The right fallopian tube was then identified and followed out to the fimbriated end. The right tube and ovary appeared normal. Attention was then turned to the left ovary and fallopian tube which contained a large ovarian cyst. An aspirator was placed into the cyst and approximately 200 mL's of clear fluid was drained from the cyst. The deflated cyst was then grasped and the Enseal was used to transect the cyst. Most of the ovary remained, which was normal appearing. The operative site was visualized and noted to be hemostatic. The cyst was placed into an Endo AMISH bag and removed through the umbilical port. The abdomen was copiously irrigated with warm normal saline. Laparoscopic pictures were taken before and after. The CO2 gas was then turned off and allowed to escape from the patient's abdomen. All trocars were then removed. The fascia of the umbilical port site was closed with 0 Vicryl. The skin at all trocar sites were closed with 4-0 Vicryl in a subcuticular fashion with overlying Dermabond. No antibiotics were indicated for this procedure. After completion of skin closure of the trocar sites attention was then turned to the vagina where the sponge stick was removed Sponge, lap, needle and instrument counts were correct 3. The patient tolerated the procedure well and was taken to the recovery area awake and in s table condition.
[2019-03-20] MEDS ORDERED: ONDANSETRON HCL INJ/PF 4 MG/2 ML SDV IV PRN (14:24)
[2019-03-20] MEDS ORDERED: OXYCODONE-ACETAMINOPHEN 5-325 MG TABLET PO PRN (14:24)
[2019-03-20] MEDS ORDERED: ROCURONIUM BROMIDE INJ 50 MG/5 ML VIAL IV ONE (14:32)
[2019-03-20] MEDS ORDERED: ONDANSETRON HCL INJ/PF 4 MG/2 ML SDV ONE (14:32)
[2019-03-20] MEDS ORDERED: NEOSTIGMINE METHYLSULFATE 10 MG/10 ML VIAL ONE (14:32)
[2019-03-20] MEDS ORDERED: GLYCOPYRROLATE 1 MG/5 ML VIAL ONE (14:32)
[2019-03-20] MEDS ORDERED: SUCCINYLCHOLINE CHLORIDE INJ 200 MG/10 ML VIAL ONE (14:32)
[2019-03-20] MEDS ORDERED: DIPHENHYDRAMINE HCL 50 MG/ML VIAL ONE (14:36)
[2019-03-20] MEDS ORDERED: OXYCODONE-ACETAMINOPHEN 5-325 MG TABLET ONE (15:00)
[2019-03-20 16:10] VITALS: BP 128/70
== END 2019-03-20 16:10 | disposition home or self-care (01) ==
LOC: OROUT 10:34
PROVIDERS: ATTEND Obstetrics & Gynecology
DX: N83.202 Unspecified ovarian cyst, left side (principal); Z87.891 Personal history of nicotine dependence; I10 Essential (primary) hypertension; E66.9 Obesity, unspecified; G47.33 Obstructive sleep apnea (adult) (pediatric); Z88.2 Allergy status to sulfonamides
CPT/HCPCS: 86900; 86901; 36415; 86850; 84132; 81025; 88162; 88305 ×2; 00840; 49322; 58662; J2250; J3490 ×2; J1200; J3010; J2710; J1170; J0330; J2405; J2704; S0028; 840

== ENCOUNTER 2019-05-25 12:10 | Observation (INO) | payer OTHER ==
[2019-05-25 12:44] LABS: ABSOLUTE BASOPHILS # (AUTO) 0.1 10^3/uL (0.0-0.2); ABSOLUTE EOSINOPHILS # (AUTO) 0.3 10^3/uL (0.0-0.6); ABSOLUTE MONOCYTES (AUTO) 0.5 10^3/uL (0.1-1.4); ABSOLUTE NEUT (AUTO) 5.2 10^3/uL (1.7-8.2); BASOPHILS % (AUTO) 0.7 % (0-2); EOSINOPHILS % (AUTO) 4.2 % (0-6); HEMATOCRIT 42.8 % (36.0-47.0); HEMOGLOBIN 14.7 g/dL (12.0-15.5); LYMPHOCYTES % (AUTO) 24.7 % (13-45); MEAN CORPUSCULAR HEMOGLOBIN 31.6 pg (27.0-33.4); MEAN CORPUSCULAR HGB CONC 34.3 g/dL (32.0-36.0); MEAN CORPUSCULAR VOLUME 92 fl (80-97); MONOCYTES % (AUTO) 6.1 % (3-13); PLATELET COUNT 184 10^3/uL (150-450); RED BLOOD COUNT 4.65 10^6/uL (3.72-5.28); RED CELL DISTRIBUTION WIDTH 13.8 % (11.5-14.0); SEGMENTED NEUTROPHILS % (AUTO) 64.3 % (42-78); TOTAL CELLS COUNTED % (AUTO) 100 %; WHITE BLOOD COUNT 8.1 10^3/uL (4.0-10.5)
[2019-05-25 13:08] LABS: ALBUMIN 4.1 g/dL (3.5-5.0); ALKALINE PHOSPHATASE 110 U/L (38-126); ANION GAP 10 (5-19); ASPARTATE AMINO TRANSFERASE 101 U/L (14-36); BILIRUBIN,DIRECT 0.1 mg/dL (0.0-0.4); BILIRUBIN,TOTAL 0.5 mg/dL (0.2-1.3); BLOOD UREA NITROGEN 12 mg/dL (7-20); CARBON DIOXIDE 28 mmol/L (22-30); CHLORIDE 101 mmol/L (98-107); CREATINE KINASE 199 U/L (30-135); GLUCOSE 172 mg/dL (75-110); POTASSIUM 3.7 mmol/L (3.6-5.0)
[2019-05-25 13:17] LABS: CREATINE KINASE MB 3.64 ng/mL (<4.55)
[2019-05-25 13:20] LABS: TROPONIN I < 0.012 ng/mL
--- NOTE | 2019-05-25 13:48 | ER Document Report ---
ED Cardiac - General Chief Complaint: Chest Pain Stated Complaint: CHEST PAIN Time Seen by Provider: 05/25/19 12:52 Primary Care Provider: SINGH MEJIA PA-C [Primary Care Provider] - Follow up as needed Mode of Arrival: Ambulatory Information source: Patient Notes: Patient is a 44-year-old female presents emergency department chief complaint of chest pain that began this morning at approximately 11 AM. Patient reports pain felt like a tightness in the left side of her chest that then radiated to the left arm, left jaw and left shoulder. Patient reports associated nausea and states she generally felt unwell at that time. EMS gave 324 of aspirin and 4 sprays of sublingual nitroglycerin, chest pain completely resolved. TRAVEL OUTSIDE OF THE [place] IN LAST 30 DAYS: No - Related Data Allergies/Adverse Reactions: Sulfa (Sulfonamide Antibiotics) Allergy (Unknown, Verified 03/20/19 11:44) Past Medical History - General Information source: Patient - Social History Smoking Status: Former Smoker Chew tobacco use (# tins/day): No Frequency of alcohol use: Occasional Family History: Reviewed & Not Pertinent Patient has suicidal ideation: No Patient has homicidal ideation: No - Past Medical History Cardiac Medical History: Reports: Hx Hypertension Denies: Hx Coronary Artery Disease, Hx Heart Attack Pulmonary Medical History: Reports: Hx Asthma - A CHILD Denies: Hx Bronchitis, Hx COPD, Hx Pneumonia Neurological Medical History: Denies: Hx Cerebrovascular Accident, Hx Seizures Endocrine Medical History: Reports: Hx Graves' Disease - Patient is on Synthroid at this time Renal/ Medical History: Denies: Hx Peritoneal Dialysis Musculoskeletal Medical History: Reports Hx Arthritis - RA taking methotrexate Past Surgical History: Reports: Hx Adenoidectomy, Hx Cholecystectomy, Hx Hysterectomy, Hx Tonsillectomy - Immunizations Immunizations up to date: Yes Hx Diphtheria, Pertussis, Tetanus Vaccination: Yes - 11/2009 Review of Systems - Review of Systems Constitutional: Malaise EENT: No symptoms reported Cardiovascular: Chest pain Respiratory: No symptoms reported Gastrointestinal: Nausea Genitourinary: No symptoms reported Female Genitourinary: No symptoms reported Musculoskeletal: No symptoms reported Skin: No symptoms reported Hematologic/Lymphatic: No symptoms reported Neurological/Psychological: No symptoms reported Physical Exam - Vital signs Vitals: Pulse Ox 98 05/25/19 12:10 - Notes Notes: PHYSICAL EXAMINATION: GENERAL: Well-appearing, well-nourished and in no acute distress. HEAD: Atraumatic, normocephalic. EYES: Pupils equal round and reactive to light, extraocular movements intact, conjunctiva are normal. ENT: Nares patent, oropharynx clear without exudates. Moist mucous membranes. NECK: Normal range of motion, supple without lymphadenopathy LUNGS: Breath sounds clear to auscultation bilaterally and equal. No wheezes r ales or rhonchi. HEART: Regular rate and rhythm without murmurs ABDOMEN: Soft, nontender, nondistended abdomen. No guarding, no rebound. No masses appreciated. Female : deferred Musculoskeletal: Normal range of motion, no pitting or edema. No cyanosis. NEUROLOGICAL: Cranial nerves grossly intact. Normal speech, normal gait. Normal sensory, motor exams PSYCH: Normal mood, normal affect. SKIN: Warm, Dry, normal turgor, no rashes or lesions noted. Course - Re-evaluation Re-evalutation: Patient appears well, nontoxic, chest pain-free since arrival. Patient reports chest pain resolved after EMS gave her nitroglycerin. EKG shows a sinus rhythm, rate of 71, QTc 470, no ST segment elevations or depressions to suggest ischemia, EKG unchanged from previous. Initial troponin is negative. Patient does have risk factors, she is obese and has hypertension. She does have a history of having an ICU admission for ventricular tachycardia. 05/25/19 14:15 Consulted cardiology, Dr. Weaver who agrees patient should come in for chest pain rule out. He would also like thyroid studies ordered. Patient accepted for admission by hospitalist, OSCAR Harp. - Vital Signs Vital signs: Temp Pulse Resp BP Pulse Ox 97.9 F 18 113/77 97 05/25/19 12:33 05/25/19 13:01 05/25/19 13:01 05/25/19 13:01 - Laboratory Result Diagrams: 05/25/19 12:20 05/25/19 12:20 Laboratory results interpreted by me: 05/25/19 12:20 Glucose 172 H AST 101 H Creatine Kinase 199 H Discharge - Discharge Clinical Impression: Chest pain Condition: Stable Disposition: ADMITTED OBSERVATION Admitting Provider: Pretty (Hospitalist) Unit Admitted: Telemetry Referrals: SINGH MEJIA PA-C [Primary Care Provider] - Follow up as needed
--- NOTE | 2019-05-25 13:59 | RADIOLOGY REPORT (SQ) ---
EXAM DESCRIPTION: CHEST 2 VIEWS COMPLETED DATE/TIME: 05/25/2019 1:33 pm REASON FOR STUDY: cp COMPARISON: 10/04/2018 EXAM PARAMETERS: NUMBER OF VIEWS: two views TECHNIQUE: Digital Frontal and Lateral radiographic views of the chest acquired. RADIATION DOSE: NA LIMITATIONS: none FINDINGS: LUNGS AND PLEURA: No opacities, masses or pneumothorax. No pleural effusion. MEDIASTINUM AND HILAR STRUCTURES: No masses or contour abnormalities. HEART AND VASCULAR STRUCTURES: Heart normal size. No evidence for failure. BONES: No acute findings. HARDWARE: None in the chest. OTHER: No other significant finding. IMPRESSION: NO ACUTE RADIOGRAPHIC FINDING IN THE CHEST. TECHNICAL DOCUMENTATION: JOB ID: [id number] [employer] All Rights Reserved Reading location - IP/workstation name: [email or web address]
[2019-05-25 14:58] LABS: FREE T4 (FREE THYROXINE) 0.67 ng/dL (0.78-2.19)
[2019-05-25 15:11] LABS: THYROID STIMULATING HORMONE 5.59 uIU/mL (0.47-4.68)
[2019-05-25] MEDS ORDERED: ONDANSETRON HCL INJ/PF 4 MG/2 ML SDV IV PRN (15:16)
[2019-05-25] MEDS ORDERED: ACETAMINOPHEN 325 MG TABLET PO PRN (15:16)
[2019-05-25] MEDS ORDERED: LEVALBUTEROL HCL NEB 1.25 MG/3 ML AMPUL NEB PRN (15:16)
[2019-05-25] MEDS ORDERED: MAG HYDROX/AL HYDROX/SIMETH SUSP 30 ML UDCUP PO PRN (15:16)
[2019-05-25] MEDS ORDERED: NITROGLYCERIN 0.4 MG/TAB 25 TAB/BOTTLE SL PRN (15:19)
[2019-05-25] MEDS ORDERED: HYDRALAZINE HCL INJ/PF 20 MG/1 ML SDV IV PRN (18:57)
--- NOTE | 2019-05-25 19:00 | PDOC H&P ---
History of Present Illness Admission Date/PCP: 05/25/19 14:54 SINGH MEJIA PA-C Patient complains of: chest pain History of Present Illness: DARRIAN PEREZ is a 44 year old female with a past medical history of rheumatoid arthritis, hypertension, paroxysmal ventricular tachycardia, morbid obesity, and noncompliance who presented to the emergency department today with a complaint of progressively worsening chest discomfort while at rest radiating to her right jaw and shoulder, associated with dyspnea and nausea. Patient reports that her pain resolved upon aspirin and sublingual sprays provided by EMS services. Evaluation in emergency department revealed stable vital signs, and unremarkable laboratory evaluation other than an elevated TSH to 5.59. EKG demonstrated normal sinus rhythm without ST segment changes. Chest x-ray was benign. She is referred to the hospitalist service for chest pain rule out. Past Medical History Cardiac Medical History: Reports: Hyperlipidema, Hypertension, Other - Paroxysmal ventricular tachycardia Denies: Congestive Heart Failure, Coronary Artery Disease, Myocardial Infarction Pulmonary Medical History: Reports: Pneumonia - 2016 Denies: Bronchitis, Chronic Obstructive Pulmonary Disease (COPD), Tuberculosis EENT Medical History: Reports: None Neurological Medical History: Reports: None Denies: Seizures Endocrine Medical History: Reports: Hypothyroidism, Obesity Renal/ Medical History: Denies: Chronic Kidney Disease, End Stage Renal Disease Malignancy Medical History: Reports: None GI Medical History: Denies: Cirrhosis, Gastroesophageal Reflux Disease Musculoskeltal Medical History: Reports: Arthritis - Rheumatoid Psychiatric Medical History: Denies: Bipolar Disorder, Depression Hematology: Denies: Anemia, Bleeding Tendencies Past Surgical History Past Surgical History: Reports: Adenoidectomy, Cholecystectomy, Hysterectomy, Tonsillectomy Social History Information Source: Patient Lives with: Family Smoking Status: Former Smoker Electronic Cigarette use?: No Frequency of Alcohol Use: Occasional Drugs: None Hx Prescription Drug Abuse: No - Advance Directive Resuscitation Status: Full Code Family History Family History: Reviewed & Not Pertinent Parental Family History Reviewed: Yes Children Family History Reviewed: Yes Sibling(s) Family History Reviewed.: Yes Medication/Allergy Home Medications: Folic Acid [Folvite 1 mg Tablet] 2 mg PO DAILY 05/25/19 Lisinopril [Prinivil 10 mg Tablet] 10 mg PO DAILY 05/25/19 Lisinopril/Hydrochlorothiazide [Lisinopril-Hctz 20-25 mg Tab] 1 each PO DAILY 05/25/19 Metoprolol Tartrate [Lopressor 50 mg Tablet] 50 mg PO Q12 05/25/19 Allergies/Adverse Reactions: Sulfa (Sulfonamide Antibiotics) Allergy (Unknown, Verified 03/20/19 11:44) Review of Systems Constitutional: ABSENT: chills, fever(s), headache(s), weight gain, weight loss Eyes: ABSENT: visual disturbances Ears: ABSENT: hearing changes Cardiovascular: PRESENT: chest pain. ABSENT: dyspnea on exertion, edema, orthropnea, palpitations Respiratory: PRESENT: dyspnea. ABSENT: cough, hemoptysis Gastrointestinal: PRESENT: nausea. ABSENT: abdominal pain, constipation, diarrhea, hematemesis, hematochezia, vomiting Genitourinary: ABSENT: dysuria, hematuria Musculoskeletal: ABSENT: joint swelling Integumentary: ABSENT: rash, wounds Neurological: ABSENT: abnormal gait, abnormal speech, confusion, dizziness, focal weakness, syncope Psychiatric: ABSENT: anxiety, depression, homidical ideation, suicidal ideation Endocrine: ABSENT: cold intolerance, heat intolerance, polydipsia, polyuria Hematologic/Lymphatic: ABSENT: easy bleeding, easy bruising Physical Exam Vital Signs: Temp Pulse Resp BP Pulse Ox 97.5 F 57 L 18 121/63 96 05/25/19 16:01 05/25/19 16:01 05/25/19 16:01 05/25/19 16:01 05/25/19 16:01 Intake & Output 05/24/19 05/25/19 05/26/19 06:59 06:59 06:59 Intake Total 260 Balance 260 Weight 140.614 kg General appearance: PRESENT: no acute distress, cooperative, disheveled, morbidly obese, well-developed, well-nourished Head exam: PRESENT: atraumatic, normocephalic Eye exam: PRESENT: conjunctiva pink, EOMI, PERRLA. ABSENT: scleral icterus Mouth exam: PRESENT: moist, tongue midline Teeth exam: PRESENT: poor dentation Respiratory exam: PRESENT: clear to auscultation rick, symmetrical, unlabored. ABSENT: rales, rhonchi, wheezes Cardiovascular exam: PRESENT: RRR. ABSENT: diastolic murmur, rubs, systolic murmur Pulses: PRESENT: normal dorsalis pedis pul Vascular exam: PRESENT: normal capillary refill GI/Abdominal exam: PRESENT: normal bowel sounds, soft. ABSENT: distended, guarding, mass, organolmegaly, rebound, tenderness Rectal exam: PRESENT: deferred Extremities exam: PRESENT: full ROM. ABSENT: calf tenderness, clubbing, pedal edema Neurological exam: PRESENT: alert, awake, oriented to person, oriented to place, oriented to time, oriented to situation, CN II-XII grossly intact. ABSENT: motor sensory deficit Psychiatric exam: PRESENT: appropriate affect, normal mood. ABSENT: homicidal ideation, suicidal ideation Skin exam: PRESENT: dry, intact, warm. ABSENT: cyanosis, rash Results Laboratory Results: 05/25/19 12:20 05/25/19 12:20 05/25/19 05/25/19 05/25/19 12:20 12:20 12:20 WBC 8.1 RBC 4.65 Hgb 14.7 Hct 42.8 MCV 92 MCH 31.6 MCHC 34.3 RDW 13.8 Plt Count 184 Seg Neutrophils % 64.3 Sodium 138.5 Potassium 3.7 Chloride 101 Carbon Dioxide 28 Anion Gap 10 BUN 12 Creatinine 0.70 Est GFR ( Amer) > 60 Glucose 172 H Calcium 9.0 Total Bilirubin 0.5 AST 101 H Alkaline Phosphatase 110 Total Protein 7.0 Albumin 4.1 TSH 5.59 H Free T4 0.67 L Free T3 pg/mL 3.00 05/25/19 05/25/19 12:20 12:20 Creatine Kinase 199 H CK-MB (CK-2) 3.64 Troponin I < 0.012 Impressions: Chest X-Ray 05/25/19 00:00 IMPRESSION: NO ACUTE RADIOGRAPHIC FINDING IN THE CHEST. Assessment and Plan - Diagnosis (1) Chest pain Qualifiers: Chest pain type: unspecified Qualified Code(s): R07.9 - Chest pain, unspecified Is this a current diagnosis for this admission?: Yes Plan: Patient is admitted to telemetry. Continue to trend troponins. Daily aspirin and statin therapy. Antihypertensives as below. Have explained to the patient that stress testing is not available on the weekends; patient will likely discharge tomorrow with instructions to follow-up with cardiology next week for outpatient testing. (2) Hypertension Qualifiers: Hypertension type: unspecified Qualified Code(s): I10 - Essential (primary) hypertension Is this a current diagnosis for this admission?: Yes Plan: Cardiac diet. Continue home dose metoprolol Continue home dose lisinopril/hydrochlorothiazide. IV hydralazine as needed for blood pressure control. 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 Started on levothyroxine 100 mcg daily Will require follow-up labs by PCP in 6 to 8 weeks. (4) Obesity Qualifiers: Body mass index: BMI 45.0-49.9 Is this a current diagnosis for this admission?: Yes Plan: BMI 48.6. Lifestyle modification dietary discretion advised. Cardiac diet. - Time Time Spent with patient: 35 or more minutes Medications reviewed and adjusted accordingly: Yes Anticipated discharge: Home Within: within 24 hours
[2019-05-25] MEDS: FAMOTIDINE 20 MG TABLET PO SCH (21:21)
[2019-05-25] MEDS: METOPROLOL TARTRATE 50 MG TABLET PO SCH (21:21)
[2019-05-25] MEDS: HEPARIN SOD (PORCINE) 5,000 UNIT/ML 1 ML VIAL SUBCUT SCH (21:22)
[2019-05-25] MEDS ORDERED: ATORVASTATIN CALCIUM 20 MG TABLET PO SCH (22:00)
[2019-05-26 05:59] LABS: HEMATOCRIT 41.8 % (36.0-47.0); HEMOGLOBIN 14.5 g/dL (12.0-15.5); MEAN CORPUSCULAR HEMOGLOBIN 31.7 pg (27.0-33.4); MEAN CORPUSCULAR HGB CONC 34.6 g/dL (32.0-36.0); MEAN CORPUSCULAR VOLUME 92 fl (80-97); PLATELET COUNT 159 10^3/uL (150-450); RED BLOOD COUNT 4.56 10^6/uL (3.72-5.28); RED CELL DISTRIBUTION WIDTH 13.8 % (11.5-14.0); WHITE BLOOD COUNT 7.4 10^3/uL (4.0-10.5)
[2019-05-26] MEDS: LEVOTHYROXINE SODIUM 0.1 MG TABLET PO SCH ×2 (06:00→06:06)
[2019-05-26] MEDS: HEPARIN SOD (PORCINE) 5,000 UNIT/ML 1 ML VIAL SUBCUT SCH (06:00)
[2019-05-26 06:21] LABS: ANION GAP 9 (5-19); BLOOD UREA NITROGEN 14 mg/dL (7-20); CARBON DIOXIDE 25 mmol/L (22-30); CHLORIDE 107 mmol/L (98-107); CHOLESTEROL 137.02 mg/dL (0-200); GLUCOSE 116 mg/dL (75-110); POTASSIUM 4.1 mmol/L (3.6-5.0); TRIGLYCERIDES 147 mg/dL (<150)
[2019-05-26 06:32] LABS: DIRECT LDL 88 mg/dL (<100)
[2019-05-26 08:30] VITALS: BP 123/81
[2019-05-26] MEDS ORDERED: DOCUSATE SODIUM 100 MG CAPSULE PO SCH (10:00)
[2019-05-26] MEDS ORDERED: ASPIRIN 81 MG TABLET, CHEWABLE PO SCH (10:00)
[2019-05-26] MEDS ORDERED: FOLIC ACID 1 MG TABLET PO SCH (10:00)
[2019-05-26] MEDS: FAMOTIDINE 20 MG TABLET PO SCH (10:00)
[2019-05-26] MEDS ORDERED: HYDROCHLOROTHIAZIDE 25 MG TABLET PO SCH (10:00)
[2019-05-26] MEDS ORDERED: LISINOPRIL 10 MG TABLET PO SCH (10:00)
[2019-05-26] MEDS ORDERED: (PENDING PHARMACY ID) (Lisinopril/Hydrochlorothiazide [Lisinopril-Hctz 20-25 Mg Tab] 1 EAC PO SCH (10:00)
[2019-05-26] MEDS: METOPROLOL TARTRATE 50 MG TABLET PO SCH (10:00)
--- NOTE | 2019-05-26 16:12 | PDOC DISCHARGE SUMMARY ---
Impression - Admit/DC Date/PCP Admission Date/Primary Care Provider: 05/25/19 14:54 SINGH MEJIA PA-C Discharge Date: 05/26/19 - Discharge Diagnosis (1) Chest pain Is this a current diagnosis for this admission?: Yes (2) Hypertension Is this a current diagnosis for this admission?: Yes (3) Hypothyroidism Is this a current diagnosis for this admission?: Yes (4) Obesity Is this a current diagnosis for this admission?: Yes - Additional Information Resuscitation Status: Full Code Discharge Diet: Cardiac Discharge Activity: Activity As Tolerated, Balance Activity w/Rest Referrals: SCOTT WEAVER MD [ACTIVE STAFF] - (Follow up next week for outpatient stress testing.) SINGH MEJIA PA-C [Primary Care Provider] - Follow up as needed Prescriptions: Aspirin [Aspirin 81 mg Chewable Tablet] 81 mg PO DAILY #30 tab.chew Metformin HCl [Metformin HCl ER] 500 mg PO DAILY #30 tab.er.24h Famotidine [Pepcid 20 mg Tablet] 20 mg PO DAILY #30 tablet Levothyroxine Sodium [Synthroid 0.1 mg Tablet] 0.1 mg PO Q6AM #30 tablet Home Medications: Folic Acid [Folvite 1 mg Tablet] 2 mg PO DAILY 05/25/19 Lisinopril/Hydrochlorothiazide [Lisinopril-Hctz 20-25 mg Tab] 1 each PO DAILY 05/25/19 Metoprolol Tartrate [Lopressor 50 mg Tablet] 50 mg PO Q12 05/25/19 Acetaminophen [Tylenol 325 mg Tablet] 650 mg PO Q4HP PRN tablet 05/26/19 Aspirin [Aspirin 81 mg Chewable Tablet] 81 mg PO DAILY #30 tab.chew 05/26/19 Docusate Sodium [Colace 100 mg Capsule] 100 mg PO DAILY capsule 05/26/19 Famotidine [Pepcid 20 mg Tablet] 20 mg PO DAILY #30 tablet 05/26/19 Levothyroxine Sodium [Synthroid 0.1 mg Tablet] 0.1 mg PO Q6AM #30 tablet 05/26/19 Metformin HCl [Metformin HCl ER] 500 mg PO DAILY #30 tab.er.24h 05/26/19 History of Present Illiness History of Present Illness: DARRIAN PEREZ is a 44 year old female with a past medical history of rheumatoid arthritis, hypertension, paroxysmal ventricular tachycardia, morbid obesity, and noncompliance who presented to the emergency department today with a complaint of progressively worsening chest discomfort while at rest radiating to her right jaw and shoulder, associated with dyspnea and nausea. Patient reports that her pain resolved upon aspirin and sublingual sprays provided by EMS services. Evaluation in emergency department revealed stable vital signs, and unremarkable laboratory evaluation other than an elevated TSH to 5.59. EKG demonstrated normal sinus rhythm without ST segment changes. Chest x-ray was benign. She is referred to the hospitalist service for chest pain rule out. Hospital Course Hospital Course: The patient was admitted to the medical floor and monitored on continuous cardiac telemetry. She remained in normal sinus rhythm throughout her admission. Serial troponins were monitored; remain negative x3. Her CBC, chemistry, and lipid panel were unremarkable. Her thyroid panel did reveal hypothyroidism and A1c was elevated to 7.2%. Patient was started on levothyroxine and metformin; discussed these new medications and importance of following up with primary care provider for continued monitoring and dose adjustments. Patient remained chest pain-free; she now states that she believes that her pain may be muscular because she notes that it worsens with palpation and certain movements of her arm. She is discharged home in stable condition. She is advised follow-up with her primary care provider within 1 week. She is instructed to contact Dr. Weaver's office on Tuesday to schedule a follow-up appointment she did not follow-up following her last admission in August 2018 when she was admitted for proximal ventricular tachycardia. She is instructed to take her medications as prescribed. She is advised to return to emergency department as needed for concerning symptoms. Physical Exam Vital Signs: Temp Pulse Resp BP Pulse Ox 97.6 F 59 L 17 123/81 97 05/26/19 10:06 05/26/19 10:06 05/26/19 10:06 05/26/19 10:06 05/26/19 10:06 Intake & Output 05/25/19 05/26/19 05/27/19 06:59 06:59 06:59 Intake Total 782 Balance 782 Weight 116.9 kg General appearance: PRESENT: no acute distress, morbidly obese, well-developed, well-nourished Head exam: PRESENT: atraumatic, normocephalic Eye exam: PRESENT: conjunctiva pink, EOMI, PERRLA. ABSENT: scleral icterus Ear exam: PRESENT: normal external ear exam Mouth exam: PRESENT: moist, tongue midline Teeth exam: PRESENT: poor dentation Respiratory exam: PRESENT: clear to auscultation rick, symmetrical, unlabored. ABSENT: rales, rhonchi, wheezes Cardiovascular exam: PRESENT: RRR. ABSENT: diastolic murmur, rubs, systolic murmur Vascular exam: PRESENT: normal capillary refill GI/Abdominal exam: PRESENT: normal bowel sounds, soft. ABSENT: distended, guarding, mass, organolmegaly, rebound, tenderness Rectal exam: PRESENT: deferred Extremities exam: PRESENT: full ROM. ABSENT: calf tenderness, clubbing, pedal edema Musculoskeletal exam: PRESENT: ambulatory Neurological exam: PRESENT: alert, awake, oriented to person, oriented to place, oriented to time, oriented to situation, CN II-XII grossly intact. ABSENT: motor sensory deficit Psychiatric exam: PRESENT: appropriate affect, normal mood. ABSENT: homicidal ideation, suicidal ideation Skin exam: PRESENT: dry, intact, warm. ABSENT: cyanosis, rash Results Laboratory Results: WBC 7.4 10^3/uL (4.0-10.5) 05/26/19 05:05 RBC 4.56 10^6/uL (3.72-5.28) 05/26/19 05:05 Hgb 14.5 g/dL (12.0-15.5) 05/26/19 05:05 Hct 41.8 % (36.0-47.0) 05/26/19 05:05 MCV 92 fl (80-97) 05/26/19 05:05 MCH 31.7 pg (27.0-33.4) 05/26/19 05:05 MCHC 34.6 g/dL (32.0-36.0) 05/26/19 05:05 RDW 13.8 % (11.5-14.0) 05/26/19 05:05 Plt Count 159 10^3/uL (150-450) 05/26/19 05:05 Lymph % (Auto) 24.7 % (13-45) 05/25/19 12:20 Gage % (Auto) 6.1 % (3-13) 05/25/19 12:20 Eos % (Auto) 4.2 % (0-6) 05/25/19 12:20 Baso % (Auto) 0.7 % (0-2) 05/25/19 12:20 Absolute Neuts (auto) 5.2 10^3/uL (1.7-8.2) 05/25/19 12:20 Absolute Lymphs (auto) 2.0 10^3/uL (0.5-4.7) 05/25/19 12:20 Absolute Monos (auto) 0.5 10^3/uL (0.1-1.4) 05/25/19 12:20 Absolute Eos (auto) 0.3 10^3/uL (0.0-0.6) 05/25/19 12:20 Absolute Basos (auto) 0.1 10^3/uL (0.0-0.2) 05/25/19 12:20 Seg Neutrophils % 64.3 % (42-78) 05/25/19 12:20 Sodium 140.5 mmol/L (137-145) 05/26/19 05:05 Potassium 4.1 mmol/L (3.6-5.0) 05/26/19 05:05 Chloride 107 mmol/L (98-107) 05/26/19 05:05 Carbon Dioxide 25 mmol/L (22-30) 05/26/19 05:05 Anion Gap 9 (5-19) 05/26/19 05:05 BUN 14 mg/dL (7-20) 05/26/19 05:05 Creatinine 0.51 mg/dL (0.52-1.25) L 05/26/19 05:05 Est GFR ( Amer) > 60 (>60) 05/26/19 05:05 Est GFR (MDRD) Non-Af > 60 (>60) 05/26/19 05:05 Glucose 116 mg/dL (75-110) H 05/26/19 05:05 Hemoglobin A1c % 7.2 % (4.7-6.0) H 05/26/19 05:05 Calcium 9.0 mg/dL (8.4-10.2) 05/26/19 05:05 Total Bilirubin 0.5 mg/dL (0.2-1.3) 05/25/19 12:20 Direct Bilirubin 0.1 mg/dL (0.0-0.4) 05/25/19 12:20 Neonat Total Bilirubin Not Reportable 05/25/19 12:20 Neonat Direct Bilirubin Not Reportable 05/25/19 12:20 Neonat Indirect Bili Not Reportable 05/25/19 12:20 AST 101 U/L (14-36) H 05/25/19 12:20 ALT 141 U/L (<35) 05/25/19 12:20 Alkaline Phosphatase 110 U/L (38-126) 05/25/19 12:20 Creatine Kinase 199 U/L (30-135) H 05/25/19 12:20 CK-MB (CK-2) 3.64 ng/mL (<4.55) 05/25/19 12:20 Troponin I < 0.012 ng/mL 05/26/19 00:27 Total Protein 7.0 g/dL (6.3-8.2) 05/25/19 12:20 Albumin 4.1 g/dL (3.5-5.0) 05/25/19 12:20 Triglycerides 147 mg/dL (<150) 05/26/19 05:05 Cholesterol 137.02 mg/dL (0-200) 05/26/19 05:05 LDL Cholesterol Direct 88 mg/dL (<100) 05/26/19 05:05 VLDL Cholesterol 29.0 mg/dL (10-31) 05/26/19 05:05 HDL Cholesterol 37 mg/dL (>40) L 05/26/19 05:05 TSH 5.59 uIU/mL (0.47-4.68) H 05/25/19 12:20 Free T4 0.67 ng/dL (0.78-2.19) L 05/25/19 12:20 Free T3 pg/mL 3.00 pg/mL (2.77-5.27) 05/25/19 12:20 05/25/19 05/25/19 05/26/19 12:20 18:10 00:27 CK-MB (CK-2) 3.64 Troponin I < 0.012 < 0.012 < 0.012 Impressions: Chest X-Ray 05/25/19 00:00 IMPRESSION: NO ACUTE RADIOGRAPHIC FINDING IN THE CHEST. Plan Plan of Treatment: The patient is discharged home in stable condition. She is advised to follow-up with her primary care provider within [address] Weaver's office when they open on Tuesday to schedule outpatient stress testing. She is instructed to take her medications as prescribed. She is advised to eat a heart healthy, low calorie diet. Drink plenty of water. Avoid tobacco and alcohol use. Return to the emergency department as needed for concerning symptoms. Time Spent: Less than 30 Minutes Stroke Is this a Stroke Patient?: No Acute Heart Failure - Is this a Heart Failure Patient?: No
--- NOTE | 2019-05-26 21:35 | EKG REPORT ---
SEVERITY:- ABNORMAL ECG - SINUS RHYTHM NONSPECIFIC INTRAVENTRICULAR CONDUCTION DELAY : Confirmed by: Brielle Bustamante 26-May-2019 21:34:43
== END 2019-05-26 10:15 | disposition home or self-care (01) ==
LOC: ER 12:10 → EH 14:54 → 4S 15:47
PROVIDERS: ADMIT Internal Medicine; ATTEND Internal Medicine
DX: R07.89 Other chest pain (principal); I10 Essential (primary) hypertension; E06.3 Autoimmune thyroiditis; E03.8 Other specified hypothyroidism; E66.01 Morbid (severe) obesity due to excess calories; M06.9 Rheumatoid arthritis, unspecified; R11.0 Nausea; R53.81 Other malaise; Z87.891 Personal history of nicotine dependence; Z79.899 Other long term (current) drug therapy; Z68.42 Body mass index [BMI] 45.0-49.9, adult
CPT/HCPCS: 93005; 99285; 36415 ×2; 84439; 82553; 82550; 84443; 85025; 85027; 80048; 80053; 84484 ×2; 84481; 83036; 80061; 71046; 93010; G0378 ×3; J1644 ×2

== ENCOUNTER 2019-09-29 11:24 | Emergency (ER) | payer OTHER ==
[2019-09-29 11:33] VITALS: BP 140/81
[2019-09-29] MEDS ORDERED: NORMAL SALINE 500 ML IV ONE (11:43)
--- NOTE | 2019-09-29 11:45 | ER Document Report ---
ED Medical Screen (RME) - General Chief Complaint: Flank Pain Stated Complaint: RIGHT FLANK PAIN Time Seen by Provider: 09/29/19 11:43 Primary Care Provider: SINGH MEJIA PA-C [Primary Care Provider] - Follow up as needed Information source: Patient Cannot obtain history due to: Other - This a 44-year-old female presented to the emergency room today stating she had right flank pain which started last night seemed to start at the central umbilicus area and is now radiating around to the right. She does not have any frequency urgency burning or changes with urination she does have diffuse discomfort and nausea. TRAVEL OUTSIDE OF THE [place] IN LAST 30 DAYS: No - Related Data Allergies/Adverse Reactions: Sulfa (Sulfonamide Antibiotics) Allergy (Unknown, Verified 09/29/19 11:42) Past Medical History - Past Medical History Cardiac Medical History: Reports: Hx Hypercholesterolemia, Hx Hypertension Denies: Hx Congestive Heart Failure, Hx Coronary Artery Disease, Hx Heart Attack Pulmonary Medical History: Reports: Hx Asthma - childhood but since resolved, Hx Pneumonia - 2016 Denies: Hx Bronchitis, Hx COPD, Hx Tuberculosis Neurological Medical History: Denies: Hx Cerebrovascular Accident, Hx Seizures, Hx Parkinson's Disease Endocrine Medical History: Reports: Hx Graves' Disease - Patient is on Synthroid at this time, Hx Hypothyroidism Renal/ Medical History: Denies: Hx End Stage Renal Disease, Hx Kidney Stones, Hx Peritoneal Dialysis GI Medical History: Denies: Hx Cirrhosis, Hx Gastroesophageal Reflux Disease, Hx Ulcer Musculoskeltal Medical History: Reports Hx Arthritis - Rheumatoid, Denies Hx Multiple Sclerosis Psychiatric Medical History: Denies: Hx Bipolar Disorder, Hx Depression, Hx Schizophrenia Past Surgical History: Reports: Hx Adenoidectomy, Hx Cholecystectomy, Hx Hysterectomy, Hx Tonsillectomy - Immunizations Immunizations up to date: Yes Hx Diphtheria, Pertussis, Tetanus Vaccination: Yes - 11/2009 Physical Exam - Vital signs Vitals: Temp Pulse Resp BP Pulse Ox 97.8 F 54 L 18 140/81 H 96 09/29/19 11:32 09/29/19 11:32 09/29/19 11:32 09/29/19 11:32 09/29/19 11:32 - Abdominal Inspection: Normal Distension: No distension Bowel sounds: Normal Tenderness: Nontender Organomegaly: No organomegaly Course - Vital Signs Vital signs: Temp Pulse Resp BP Pulse Ox 97.8 F 54 L 18 140/81 H 96 09/29/19 11:32 09/29/19 11:32 09/29/19 11:32 09/29/19 11:32 09/29/19 11:32 Doctor's Discharge - Discharge Referrals: SINGH MEJIA PA-C [Primary Care Provider] - Follow up as needed
--- NOTE | 2019-09-29 11:50 | ER Document Report ---
ED GI/ - General Chief Complaint: Flank Pain Stated Complaint: RIGHT FLANK PAIN Time Seen by Provider: 09/29/19 11:43 Primary Care Provider: SINGH MEJIA PA-C [Primary Care Provider] - Follow up as needed Notes: CHIEF COMPLAINT: Abdominal pain HPI: 44-year-old morbidly obese female with history of hypertension, rheumatoid arthritis, cholecystectomy, partial hysterectomy presenting for fairly sudden onset of right lower quadrant pain that began yesterday. Patient states that pain is worse with certain positions and movements worse with walking or bending at the waist. Patient states pain now seems to radiate towards the right flank and lateral abdomen. No dysuria. No hematuria. Has had nausea but no active vomiting. No fever ROS: See HPI - all other systems were reviewed and are otherwise negative Constitutional: no fever Eyes: no drainage, no blurred vision ENT: no runny nose, no sore throat Cardiovascular: no chest pain Resp: no SOB, no cough GI: no vomiting, no diarrhea, positive abdominal pain, positive nausea : no dysuria Integumentary: no rash Allergy: no hives Musculoskeletal: no extremity pain or swelling Neurological: no numbness/tingling, no weakness MEDICATIONS: I agree with the patient medications as charted by the RN. ALLERGIES: I agree with the allergies as charted by the RN. PAST MEDICAL HISTORY/PAST SURGICAL HISTORY: Reviewed and agree as charted by RN. SOCIAL HISTORY: Reviewed and agree as charted by RN. FAMILY HISTORY: No significant familial comorbid conditions directly related to patient complaint EXAM: Reviewed vital signs as charted by RN. CONSTITUTIONAL: Alert and oriented and responds appropriately to questions. Well-appearing; well-nourished, moderate distress secondary to pain HEAD: Normocephalic; atraumatic EYES: PERRL; Conjunctivae clear, sclerae non-icteric ENT: normal nose; no rhinorrhea; moist mucous membranes; pharynx without lesions noted, no uvula edema or deviation, no tonsillar hypertrophy, phonation normal NECK: Supple without meningismus; non-tender; no cervical lymphadenopathy, no masses CARD: RRR; no murmurs, no clicks, no rubs, no gallops; symmetric distal pulses RESP: Normal chest excursion without splinting or tachypnea; breath sounds clear and equal bilaterally; no wheezes, no rhonchi, no rales, pulse oximetry ABD/GI: Morbidly obese, normal bowel sounds; non-distended; soft, patient with moderate tenderness through the right lower quadrant, right lateral abdomen, right upper quadrant on palpation, no rebound, no guarding; no palpable organomegaly or masses. BACK: The back appears normal and is non-tender to palpation, there is no CVA tenderness EXT: Normal ROM in all joints; non-tender to palpation; no cyanosis, no effusions, no edema SKIN: Normal color for age and race; warm; dry; good turgor; no acute lesions noted NEURO: Moves all extremities equally; Motor and sensory function intact PSYCH: The patient's mood and manner are appropriate. Grooming and personal hygiene are appropriate. MDM: 44-year-old female with history of cholecystectomy and partial hysterectomy with right-sided abdominal pain. Differential would include both appendicitis and kidney stone. Initial screening labs and CT imaging ordered via triage process. We will add pain medication, nausea medication and reassess TRAVEL OUTSIDE OF THE [place] IN LAST 30 DAYS: No - Related Data Allergies/Adverse Reactions: Sulfa (Sulfonamide Antibiotics) Allergy (Unknown, Verified 09/29/19 11:42) Past Medical History - General Information source: Patient - Social History Smoking Status: Former Smoker Chew tobacco use (# tins/day): No Frequency of alcohol use: None Drug Abuse: None Family History: Reviewed & Not Pertinent Patient has suicidal ideation: No Patient has homicidal ideation: No - Past Medical History Cardiac Medical History: Reports: Hx Hypercholesterolemia, Hx Hypertension Denies: Hx Congestive Heart Failure, Hx Coronary Artery Disease, Hx Heart Attack Pulmonary Medical History: Reports: Hx Asthma - childhood but since resolved, Hx Pneumonia - 2016 Denies: Hx Bronchitis, Hx COPD, Hx Tuberculosis Neurological Medical History: Denies: Hx Cerebrovascular Accident, Hx Seizures, Hx Parkinson's Disease Endocrine Medical History: Reports: Hx Graves' Disease - Patient is on Synthroid at this time, Hx Hypothyroidism Renal/ Medical History: Denies: Hx End Stage Renal Disease, Hx Kidney Stones, Hx Peritoneal Dialysis GI Medical History: Denies: Hx Cirrhosis, Hx Gastroesophageal Reflux Disease, Hx Ulcer Musculoskeletal Medical History: Reports Hx Arthritis - Rheumatoid, Denies Hx Multiple Sclerosis Psychiatric Medical History: Denies: Hx Bipolar Disorder, Hx Depression, Hx Schizophrenia Past Surgical History: Reports: Hx Adenoidectomy, Hx Cholecystectomy, Hx Hysterectomy, Hx Tonsillectomy - Immunizations Immunizations up to date: Yes Hx Diphtheria, Pertussis, Tetanus Vaccination: Yes - 11/2009 Physical Exam - Vital signs Vitals: Temp Pulse Resp BP Pulse Ox 97.8 F 54 L 18 140/81 H 96 09/29/19 11:32 09/29/19 11:32 09/29/19 11:32 09/29/19 11:32 09/29/19 11:32 Course - Re-evaluation Re-evalutation: 09/29/19 14:[address] negative, labs non actionable. patient with partial hysterectomy. discussed with patient at length. Will obtain ultrasound to ensure no torsion or ovarian cyst 09/29/19 15:42 Ovaries not definitively seen on the ultrasound. Discussed at length with the patient, no other definitive abnormalities. Will treat patient's pain refer to GI for follow-up with return instructions - Vital Signs Vital signs: Temp Pulse Resp BP Pulse Ox 97.8 F 54 L 18 140/81 H 96 09/29/19 11:32 09/29/19 11:32 09/29/19 11:32 09/29/19 11:32 09/29/19 11:32 - Laboratory Result Diagrams: 09/29/19 12:10 09/29/19 12:10 Laboratory results interpreted by me: 09/29/19 12:10 Creatinine 0.47 L Glucose 132 H AST 76 H ALT 77 H Discharge - Discharge Clinical Impression: Abdominal pain, right lower quadrant Condition: Stable Disposition: HOME, SELF-CARE Additional Instructions: Pain medication as prescribed no driving if taking narcotics for pain. Follow- up closely with gastroenterology for further evaluation and treatment call for appointment. Your lab work, ultrasound and CT images did not show a definitive reason for your pain today. If you have worsening discomfort or develop fever return for reevaluation as discussed Prescriptions: Dicyclomine HCl [Bentyl 20 mg Tablet] 20 mg PO Q6H PRN #20 tablet PRN Reason: Oxycodone HCl/Acetaminophen [Percocet 5-325 mg Tablet] 1 tab PO Q4H PRN #15 tab PRN Reason: Referrals: SINGH MEJIA PA-C [Primary Care Provider] - Follow up as needed
[2019-09-29] MEDS ORDERED: ONDANSETRON HCL INJ/PF 4 MG/2 ML SDV IV ONE (11:55)
[2019-09-29] MEDS ORDERED: MORPHINE SULFATE 10 MG/ML INJ IV ONE (11:55)
[2019-09-29 12:02] LABS: APPEARANCE,URINE CLEAR; BILIRUBIN,URINE NEGATIVE (NEGATIVE); COLOR,URINE YELLOW; GLUCOSE, URINE NEGATIVE (NEGATIVE); KETONES,URINE NEGATIVE (NEGATIVE); LEUKOCYTE ESTERASE,URINE NEGATIVE (NEGATIVE); NITRITE,URINE NEGATIVE (NEGATIVE); PROTEIN,URINE NEGATIVE (NEGATIVE); URINE SPECIFIC GRAVITY 1.014; UROBILINOGEN,URINE NEGATIVE mg/dL (<2.0)
[2019-09-29 12:33] LABS: ABSOLUTE BASOPHILS # (AUTO) 0.1 10^3/uL (0.0-0.2); ABSOLUTE EOSINOPHILS # (AUTO) 0.3 10^3/uL (0.0-0.6); ABSOLUTE LYMPHOCYTES (AUTO) 1.7 10^3/uL (0.5-4.7); ABSOLUTE MONOCYTES (AUTO) 0.4 10^3/uL (0.1-1.4); ABSOLUTE NEUT (AUTO) 4.1 10^3/uL (1.7-8.2); BASOPHILS % (AUTO) 0.8 % (0-2); EOSINOPHILS % (AUTO) 4.3 % (0-6); HEMATOCRIT 41.8 % (36.0-47.0); HEMOGLOBIN 14.6 g/dL (12.0-15.5); LYMPHOCYTES % (AUTO) 26.2 % (13-45); MEAN CORPUSCULAR HEMOGLOBIN 31.9 pg (27.0-33.4); MEAN CORPUSCULAR HGB CONC 34.8 g/dL (32.0-36.0); MEAN CORPUSCULAR VOLUME 92 fl (80-97); MONOCYTES % (AUTO) 6.7 % (3-13); PLATELET COUNT 209 10^3/uL (150-450); RED BLOOD COUNT 4.56 10^6/uL (3.72-5.28); RED CELL DISTRIBUTION WIDTH 13.1 % (11.5-14.0); TOTAL CELLS COUNTED % (AUTO) 100 %; WHITE BLOOD COUNT 6.7 10^3/uL (4.0-10.5)
[2019-09-29 12:52] LABS: ALKALINE PHOSPHATASE 80 U/L (38-126); ANION GAP 11 (5-19); ASPARTATE AMINO TRANSFERASE 76 U/L (14-36); BILIRUBIN,DIRECT 0.3 mg/dL (0.0-0.4); BILIRUBIN,TOTAL 0.5 mg/dL (0.2-1.3); BLOOD UREA NITROGEN 16 mg/dL (7-20); CALCIUM 9.5 mg/dL (8.4-10.2); CARBON DIOXIDE 25 mmol/L (22-30); CHLORIDE 102 mmol/L (98-107); GLUCOSE 132 mg/dL (75-110); POTASSIUM 4.2 mmol/L (3.6-5.0); TOTAL PROTEIN 7.8 g/dL (6.3-8.2)
--- NOTE | 2019-09-29 13:43 | RADIOLOGY REPORT (SQ) ---
EXAM DESCRIPTION: CT ABD/PELVIS WITH IV ONLY COMPLETED DATE/TIME: 09/29/2019 1:32 pm REASON FOR STUDY: pain COMPARISON: None. TECHNIQUE: CT scan of the abdomen and pelvis performed using helical scanning technique with dynamic intravenous contrast injection. No oral contrast. Images reviewed with lung, soft tissue, and bone windows. Reconstructed coronal and sagittal MPR images reviewed. Delayed images for evaluation of the urinary system also acquired. All images stored on PACS. All CT scanners at this facility use dose modulation, iterative reconstruction, and/or weight based d osing when appropriate to reduce radiation dose to as low as reasonably achievable (ALARA). [facility]: Dose Right [facility]: CareDose [facility]: Dose Right [facility]: Teradose 4D [facility]: [employer] CONTRAST TYPE AND DOSE: contrast/concentration: Isovue mg/ml; Total Contrast Delivered: 99.0 ml; To krysten Saline Delivered: 67.0 ml RENAL FUNCTION: GFR > 60. RADIATION DOSE: CT Rad equipment meets quality standard of care and radiation dose reduction techniq ues were employed. CTDIvol: 21.1 mGy. DLP: 2310 mGy-cm.. LIMITATIONS: None. FINDINGS: LOWER CHEST: No significant findings. No nodules or infiltrates. LIVER: Diffusely fatty. SPLEEN: Normal size. No focal lesions. PANCREAS: No masses. No significant calcifications. No adjacent inflammation or peripancreatic fluid collections. Pancreatic duct not dilated. GALLBLADDER: Surgically absent. ADRENAL GLANDS: No significant masses or asymmetry. RIGHT KIDNEY AND URETER: No solid masses. No significant calcification. No hydronephrosis or hydroure ter. LEFT KIDNEY AND URETER: No solid masses. No significant calcification. No hydronephrosis or hydrouret er. AORTA AND VESSELS: No aneurysm. No dissection. Renal arteries, SMA, celiac without stenosis. RETROPERITONEUM: No retroperitoneal adenopathy, hemorrhage or masses. BOWEL AND PERITONEAL CAVITY: No masses or inflammatory changes. No free fluid or peritoneal masses. APPENDIX: Normal. PELVIS: No mass. No free fluid. Normal bladder. ABDOMINAL WALL: No masses. No hernias. BONES: No significant or acute findings. OTHER: No other significant finding. IMPRESSION: 1. No acute or suspicious abdominopelvic abnormality. 2. Fatty liver. TECHNICAL DOCUMENTATION: JOB ID: [id number] Quality ID # [id number]: Final reports with documentation of one or more dose reduction techniques (e.g., Au tomated exposure control, adjustment of the mA and/or kV according to patient size, use of iterative reconstruction technique) 2010 [facility] [email or web address]- All Rights Reserved Reading location - IP/workstation name: [email or web address]
[2019-09-29] MEDS ORDERED: KETOROLAC TROMETHAMINE INJ/PF 30 MG/1 ML SDV IV ONE (15:32)
--- NOTE | 2019-09-29 15:39 | RADIOLOGY REPORT (SQ) ---
EXAM DESCRIPTION: U/S NON OB PEL TV W/DOPPLER COMPLETED DATE/TIME: 09/29/2019 2:58 pm REASON FOR STUDY: right abd pain COMPARISON: CT from earlier. TECHNIQUE: Dynamic and static grayscale images acquired of the pelvis via transvaginal approach and recorded on PACS. Additional selected color Doppler and spectral images recorded. LIMITATIONS: Acoustical interference from bowel gas. FINDINGS: UTERUS: Status post hysterectomy. Several nodular echogenic regions along the vaginal cuf f. Probable calcifications based on CT which are chronic appearance air. RIGHT OVARY AND DOPPLER: Not seen. LEFT OVARY AND DOPPLER: Not seen. FREE FLUID: None noted. OTHER: No other significant finding. IMPRESSION: Status post hysterectomy. Ovaries not seen. No free fluid. TECHNICAL DOCUMENTATION: JOB ID: [id number] 2010 [employer]- All Rights Reserved Rev-12/02 Reading location - IP/workstation name: [email or web address]
== END 2019-09-29 17:07 | disposition home or self-care (01) ==
LOC: ER 11:24
DX: R10.31 Right lower quadrant pain (principal); R10.813 Right lower quadrant abdominal tenderness; R10.811 Right upper quadrant abdominal tenderness; R11.0 Nausea; E66.01 Morbid (severe) obesity due to excess calories; I10 Essential (primary) hypertension; Z90.711 Acquired absence of uterus with remaining cervical stump; Z90.49 Acquired absence of other specified parts of digestive tract; Z87.891 Personal history of nicotine dependence; Z88.2 Allergy status to sulfonamides
CPT/HCPCS: 99284; 96361; 96374; 96375; 36415; 83690; 85025; 80053; 81001; 76830; 93976; 74177; J1885; J2270; J2405; J7040

== ENCOUNTER 2020-01-01 10:28 | Emergency (ER) | payer OTHER ==
--- NOTE | 2020-01-01 11:23 | ER Document Report ---
ED Medical Screen (RME) - General Chief Complaint: High Blood Sugar Stated Complaint: BLOOD SUGAR ISSUE Time Seen by Provider: 01/01/20 11:19 Primary Care Provider: SINGH MEJIA PA-C [Primary Care Provider] - Follow up as needed Notes: HPI: 44-year-old female diagnosed with diabetes 1 week ago presenting for lethargy this morning with elevated blood sugar. Patient states she is on Janumet and metformin. Also has history of hypertension and rheumatoid arthritis. Patient states that she had difficulty getting out of her vehicle this morning secondary to lethargy. Patient states that when they did check her blood sugar at the school it was over 400. Denies chest pain shortness of breath denies fever dysuria abdominal pain nausea vomiting. PHYSICAL EXAMINATION: Lung sounds are clear to auscultation regular rate and rhythm. Patient answering all questions appropriately. Accu-Chek in triage 183 I have greeted and performed a rapid initial assessment of this patient. A comprehensive ED assessment and evaluation of the patient, analysis of test results and completion of medical decision making process will be conducted by an additional ED providers. TRAVEL OUTSIDE OF THE [place] IN LAST 30 DAYS: No - Related Data Allergies/Adverse Reactions: Sulfa (Sulfonamide Antibiotics) Allergy (Unknown, Verified 09/29/19 11:42) Past Medical History - Past Medical History Cardiac Medical History: Reports: Hx Hypercholesterolemia, Hx Hypertension Denies: Hx Congestive Heart Failure, Hx Coronary Artery Disease, Hx Heart Attack Pulmonary Medical History: Reports: Hx Asthma - childhood but since resolved, Hx Pneumonia - 2016 Denies: Hx Bronchitis, Hx COPD, Hx Tuberculosis Neurological Medical History: Denies: Hx Cerebrovascular Accident, Hx Seizures, Hx Parkinson's Disease Endocrine Medical History: Reports: Hx Graves' Disease - Patient is on Synthroid at this time, Hx Hypothyroidism Renal/ Medical History: Denies: Hx End Stage Renal Disease, Hx Kidney Stones, Hx Peritoneal Dialysis GI Medical History: Denies: Hx Cirrhosis, Hx Gastroesophageal Reflux Disease, Hx Ulcer Musculoskeltal Medical History: Reports Hx Arthritis - Rheumatoid, Denies Hx Multiple Sclerosis Psychiatric Medical History: Denies: Hx Bipolar Disorder, Hx Depression, Hx Schizophrenia Past Surgical History: Reports: Hx Adenoidectomy, Hx Cholecystectomy, Hx Hysterectomy, Hx Tonsillectomy - Immunizations Immunizations up to date: Yes Hx Diphtheria, Pertussis, Tetanus Vaccination: Yes - 11/2009 Physical Exam - Vital signs Vitals: Temp Pulse Resp BP Pulse Ox 98.7 F 54 L 20 116/61 97 01/01/20 10:55 01/01/20 10:55 01/01/20 10:55 01/01/20 10:55 01/01/20 10:55 Course - Vital Signs Vital signs: Temp Pulse Resp BP Pulse Ox 98.7 F 54 L 20 116/61 97 01/01/20 10:55 01/01/20 10:55 01/01/20 10:55 01/01/20 10:55 01/01/20 10:55 Doctor's Discharge - Discharge Referrals: SINGH MEJIA PA-C [Primary Care Provider] - Follow up as needed
[2020-01-01 12:16] LABS: ABSOLUTE BASOPHILS # (AUTO) 0.1 10^3/uL (0.0-0.2); ABSOLUTE EOSINOPHILS # (AUTO) 0.3 10^3/uL (0.0-0.6); ABSOLUTE LYMPHOCYTES (AUTO) 1.9 10^3/uL (0.5-4.7); ABSOLUTE MONOCYTES (AUTO) 0.4 10^3/uL (0.1-1.4); BASOPHILS % (AUTO) 0.9 % (0-2); HEMATOCRIT 40.1 % (36.0-47.0); HEMOGLOBIN 13.9 g/dL (12.0-15.5); LYMPHOCYTES % (AUTO) 28.7 % (13-45); MEAN CORPUSCULAR HEMOGLOBIN 32.3 pg (27.0-33.4); MEAN CORPUSCULAR HGB CONC 34.7 g/dL (32.0-36.0); MEAN CORPUSCULAR VOLUME 93 fl (80-97); MONOCYTES % (AUTO) 6.6 % (3-13); PLATELET COUNT 192 10^3/uL (150-450); RED CELL DISTRIBUTION WIDTH 13.2 % (11.5-14.0); SEGMENTED NEUTROPHILS % (AUTO) 59.8 % (42-78); TOTAL CELLS COUNTED % (AUTO) 100 %; WHITE BLOOD COUNT 6.7 10^3/uL (4.0-10.5)
[2020-01-01 12:20] LABS: VENOUS BLOOD BASE EXCESS -0.1 mmol/L; VENOUS BLOOD PCO2 53.6 mmHg (35-63); VENOUS BLOOD PH 7.32 (7.30-7.42)
[2020-01-01 12:33] LABS: ALBUMIN 4.2 g/dL (3.5-5.0); ALKALINE PHOSPHATASE 115 U/L (38-126); ANION GAP 6 (5-19); ASPARTATE AMINO TRANSFERASE 103 U/L (14-36); BILIRUBIN,TOTAL 0.6 mg/dL (0.2-1.3); BLOOD UREA NITROGEN 17 mg/dL (7-20); CALCIUM 10.6 mg/dL (8.4-10.2); CARBON DIOXIDE 29 mmol/L (22-30); CHLORIDE 99 mmol/L (98-107); GLUCOSE 161 mg/dL (75-110); POTASSIUM 4.3 mmol/L (3.6-5.0); TOTAL PROTEIN 7.6 g/dL (6.3-8.2)
[2020-01-01 12:39] LABS: APPEARANCE,URINE CLEAR; BILIRUBIN,URINE NEGATIVE (NEGATIVE); COLOR,URINE STRAW; GLUCOSE, URINE NEGATIVE (NEGATIVE); KETONES,URINE NEGATIVE (NEGATIVE); LEUKOCYTE ESTERASE,URINE NEGATIVE (NEGATIVE); NITRITE,URINE NEGATIVE (NEGATIVE); PROTEIN,URINE NEGATIVE (NEGATIVE); URINE SPECIFIC GRAVITY 1.003; UROBILINOGEN,URINE NEGATIVE mg/dL (<2.0)
--- NOTE | 2020-01-01 16:19 | ER Document Report ---
Entered by AMERICO CAMPBELL SCRIBE 01/01/20 1508 Acting as scribe for:FELICIA FUENTES MD ED General - General Chief Complaint: High Blood Sugar Stated Complaint: BLOOD SUGAR ISSUE Time Seen by Provider: 01/01/20 11:19 Primary Care Provider: SINGH MEJIA PA-C [Primary Care Provider] - Follow up as needed Mode of Arrival: Ambulatory Information source: Patient Notes: This 44 year old female that presents to the emergency department today with complaints of feeling very tired and sluggish this morning with a blood sugar of 421. Patient was started on Janumet yesterday and she took it today at around 5:30 this morning. Patient reports that she called her doctor and they told her to come to the ED. Patient mentions that she has not been using her C-PAP machine at home recently because the seal is broken on it. Patient also mentions that she dose not have a glucose monitor at home. TRAVEL OUTSIDE OF THE [place] IN LAST 30 DAYS: No - Related Data Allergies/Adverse Reactions: Sulfa (Sulfonamide Antibiotics) Allergy (Unknown, Verified 09/29/19 11:42) Home Medications: Metoprolol, Edarayclor, Janumet, Metformin Past Medical History - General Information source: Patient - Social History Smoking Status: Never Smoker Cigarette use (# per day): No Frequency of alcohol use: Occasional Drug Abuse: None Lives with: Family Family History: Reviewed & Not Pertinent Patient has homicidal ideation: No - Past Medical History Cardiac Medical History: Reports: Hx Hypercholesterolemia, Hx Hypertension Pulmonary Medical History: Reports: Hx Asthma - childhood but since resolved, Hx Pneumonia - 2016 Endocrine Medical History: Reports: Hx Diabetes Mellitus Type 2, Hx Graves' Disease - Patient is on Synthroid at this time, Hx Hypothyroidism Musculoskeletal Medical History: Reports Hx Arthritis - Rheumatoid Past Surgical History: Reports: Hx Adenoidectomy, Hx Cholecystectomy, Hx Hysterectomy, Hx Tonsillectomy - Immunizations Immunizations up to date: Yes Hx Diphtheria, Pertussis, Tetanus Vaccination: Yes - 11/2009 Review of Systems - Review of Systems Constitutional: See HPI, Other - elevated BGLs, feeling "tired" EENT: No symptoms reported Cardiovascular: No symptoms reported Respiratory: No symptoms reported Gastrointestinal: No symptoms reported Genitourinary: No symptoms reported Female Genitourinary: No symptoms reported Musculoskeletal: No symptoms reported Skin: No symptoms reported Hematologic/Lymphatic: No symptoms reported Neurological/Psychological: No symptoms reported -: Yes All other systems reviewed and negative Physical Exam - Vital signs Vitals: Temp Pulse Resp BP Pulse Ox 98.7 F 54 L 20 116/61 97 01/01/20 10:55 01/01/20 10:55 01/01/20 10:55 01/01/20 10:55 01/01/20 10:55 - Notes Notes: Physical Exam: General: Alert, appears well. HEENT: Normocephalic. Atraumatic. PERRL. Extraocular movements intact. Oropharynx clear. Neck: Supple. Non-tender. Respiratory: No respiratory distress. Clear and equal breath sounds bilaterally. Cardiovascular: Regular rate and rhythm. Abdominal: Obese. Non-tender. No distension. Normal Bowel Sounds. Back: No gross abnormalities. Extremities: Moves all four extremities. Upper extremities: Normal inspection. Normal ROM. Lower extremities: Normal inspection. No edema. Normal ROM. Neurological: Normal cognition. AAOx4. Normal speech. Psychological: Normal affect. Normal Mood. Skin: Warm. Dry. Normal color. Course - Vital Signs Vital signs: Temp Pulse Resp BP Pulse Ox 98.7 F 54 L 20 116/61 97 01/01/20 11:16 01/01/20 10:55 01/01/20 10:55 01/01/20 10:55 01/01/20 10:55 - Laboratory Result Diagrams: 01/01/20 11:57 01/01/20 11:57 Laboratory results interpreted by me: 01/01/20 01/01/20 01/01/20 11:19 11:57 11:57 Sodium 134.4 L Glucose 161 H POC Glucose 183 H Hemoglobin A1c % 8.8 H Calcium 10.6 H AST 103 H ALT 126 H Discharge - Discharge Clinical Impression: Obstructive sleep apnea Hyperglycemia due to type 2 diabetes mellitus Qualifiers: Diabetes mellitus fdc insulin use: without fdc use Qualified Code(s): E11.65 - Type 2 diabetes mellitus with hyperglycemia Condition: Stable Disposition: HOME, SELF-CARE Additional Instructions: The drowsy, sleepy feeling you are experiencing this morning is most likely due to not using your sleep apnea mask. If you snore heavily, and you are not using the mask, then you may be having trouble staying in stage IV sleep which will leave you very tired and sleepy when you get up in the morning. Your blood sugar was slightly elevated today, but not enough to cause any of your symptoms. You should get a blood sugar testing missing and check your sugars at least once daily while you are adjusting to your new diabetes medications. Follow-up with your primary care provider if you continue having problems. RETURN TO THE EMERGENCY ROOM IF ANY NEW OR WORSENING SYMPTOMS. Referrals: SINGH MEJIA PA-C [Primary Care Provider] - Follow up as needed I personally performed the services described in the documentation, reviewed and edited the documentation which was dictated to the scribe in my presence, and it accurately records my words and actions.
[2020-01-01 16:34] VITALS: BP 125/76
== END 2020-01-01 16:35 | disposition home or self-care (01) ==
LOC: ER 10:28
DX: E11.65 Type 2 diabetes mellitus with hyperglycemia (principal); G47.33 Obstructive sleep apnea (adult) (pediatric); Z91.19 Patient's noncompliance with other medical treatment and regimen; I10 Essential (primary) hypertension; Z79.84 Long term (current) use of oral hypoglycemic drugs; Z79.899 Other long term (current) drug therapy; Z88.2 Allergy status to sulfonamides
CPT/HCPCS: 36415; 80053; 81001; 81025; 82803; 82962; 83036; 85025; 99284